=== PATIENT | male | born 1945 | race Caucasian/White ===

== ENCOUNTER 2021-05-06 07:45 | Day surgery (SDC) | payer MEDICARE, OTHER ==
[2021-05-06] MEDS ORDERED: LIDOCAINE HCL 1% 50 MG/5 ML VL PF IJ ONE (07:46)
[2021-05-06] MEDS ORDERED: PROVAYBLUE IV ONE (07:46)
[2021-05-06] MEDS ORDERED: Epinephrine Preservative Free 1 MG/ML IJ ONE (07:46)
[2021-05-06] MEDS ORDERED: Lactated Ringers 1,000 ML IV ONE (07:57)
[2021-05-06] MEDS ORDERED: TETRACAINE 0.5% STERI-UNIT SOL OP ONE ×2 (08:30)
[2021-05-06] MEDS ORDERED: BETADINE 5% OPHTHALMIC 30 ML OP ONE (08:30)
[2021-05-06] MEDS ORDERED: NON-FORMULARY ITEM OP ONE (08:30)
[2021-05-06] MEDS ORDERED: Lactated Ringers 1,000 ML IV SCH (08:30)
[2021-05-06] MEDS ORDERED: Ak-Dilate OPHTHALMIC*** 1.065 ML, Cyclogyl 1% OPHTH SOL 5 ML 1.065 ML, GATIFLOXACIN 0.5... OP ONE ×4 (08:30)
[2021-05-06] MEDS ORDERED: cefUROXime sodium 0.005 GM in Sodium Chloride Flush 30 ML*** 0.5 ML IJ SCH (08:30)
[2021-05-06] MEDS ORDERED: DIPRIVAN 200 MG/20 ML IV ONE ×4 (08:54→09:58)
[2021-05-06] MEDS ORDERED: ROBINUL ONE (08:54)
[2021-05-06] MEDS ORDERED: Zofran 4 MG/2 ML VIAL IV PRN (10:00)
[2021-05-06] MEDS ORDERED: ACETAZOLAMIDE 250 MG TABLET PO ONE (10:00)
[2021-05-06 11:09] VITALS: O2SAT 94
[2021-05-06 11:39] VITALS: BP 168/88; PULSE 92
== END 2021-05-06 11:26 | disposition home or self-care (01) ==
LOC: SDC 07:45
PROVIDERS: ATTEND Ophthalmology
DX: H25.812 Combined forms of age-related cataract, left eye (principal); Z79.899 Other long term (current) drug therapy
CPT/HCPCS: 66982; 99100; C1780; J0171; J2001; J2704; A9270-GY; Q9968

== ENCOUNTER 2021-07-17 12:37 | Day surgery (SDC) | payer MEDICARE, OTHER ==
--- NOTE | 2021-07-16 13:40 | HP ---
DATE OF SURGERY: 07/17/2021 HISTORY OF PRESENT ILLNESS: The patient is a 76-year-old male who presents for colonoscopy. Last colonoscopy was ten years ago and he had some polyps. He also complains of hemorrhoids on the left side. He denies any rectal bleeding. Hemorrhoids are painful at times. The patient did have mild to moderate hemorrhoids on physical exam. PAST MEDICAL HISTORY: Coronary artery disease, hypertension, asthma, hyperlipidemia. PAST SURGICAL HISTORY: Heart stent. Cataract surgery. ALLERGIES: NKDA. MEDICATIONS: Aspirin, albuterol, rosuvastatin, propranolol, Breo Ellipta. FAMILY HISTORY: Stroke. Brain cancer. SOCIAL HISTORY: Negative. REVIEW OF SYSTEMS: CONSTITUTIONAL: Denies fever or chills. CHEST: Denies shortness of breath. CVS: Denies chest pain. ABDOMEN: Denies abdominal pain, nausea, vomiting, diarrhea, constipation or rectal bleeding. PHYSICAL EXAMINATION: GENERAL: No acute distress. CHEST: Nonlabored. No shortness of breath. CVS: Regular rate and rhythm. ABDOMEN: Soft, nontender. IMPRESSION: History of colon polyps and symptomatic hemorrhoids. PLAN: Colonoscopy and hemorrhoidectomy with Dr. Hernan Perez. As dictated by Sandra Mcintosh NP.
[~2021-07-17 12:37] MED LIST: Sensorcaine 0.25% 10 ML ONE
[2021-07-17] MEDS ORDERED: EXPAREL 133 MG/10 ML VIAL IJ ONE (12:38)
[2021-07-17] MEDS ORDERED: Lactated Ringers 1,000 ML IV SCH (13:00)
[2021-07-17] MEDS ORDERED: MEFOXIN 2 GM PREMIX** 2 GM/50 ML ML IV SCH (13:00)
[2021-07-17] MEDS ORDERED: Zofran 4 MG/2 ML VIAL ONE (15:48)
[2021-07-17] MEDS ORDERED: Decadron 4 MG INJ ONE (15:48)
[2021-07-17] MEDS ORDERED: Zemuron 100 MG/10 ML ONE (15:48)
[2021-07-17] MEDS ORDERED: TORAdol 30 mg Injection ONE (15:48)
[2021-07-17] MEDS ORDERED: DIPRIVAN 200 MG/20 ML IV ONE (15:48)
[2021-07-17] MEDS ORDERED: BRIDION 200MG/2ML IV ONE (15:48)
[2021-07-17] MEDS ORDERED: SUBLIMAZE 100 MCG/2 ML ONE ×2 (15:48→16:59)
[2021-07-17] MEDS ORDERED: Xylocaine-Mpf 2% 5 Ml Vial ONE (15:48)
[2021-07-17] MEDS ORDERED: ROBINUL ONE (16:15)
[2021-07-17] MEDS ORDERED: Lactated Ringers 500 ML IV ONE ×2 (17:38→17:50)
[2021-07-17] MEDS ORDERED: TRANDATE 20 MG/4 ML SYRINGE IV ONE (17:40)
[2021-07-17 18:31] VITALS: PULSE 76; O2SAT 96
[2021-07-17 18:33] VITALS: BP 138/92
--- NOTE | 2021-07-18 09:39 | OP ---
SURGERY DATE/TIME: 07/17/2021 1549 PREOPERATIVE DIAGNOSES: 1) Screening. 2) Severe internal and external hemorrhoids. POSTOPERATIVE DIAGNOSES: 1) Findings of severe sigmoid diverticulosis. 2) Complex hemorrhoidectomy with the hemorrhoidal ligature taking five internals and three externals. PROCEDURES: 1) Colonoscopy complete to cecum. 2) Hemorrhoidectomy. SURGEON: Hernan Perez M.D. ANESTHESIA: MAC. COMPLICATIONS: None. CONDITION: Stable. DESCRIPTION OF PROCEDURE: The patient is taken to surgery. Lithotomy. The scope introduced and advanced to the cecum. Circumferential withdrawal satisfactory. There was severe sigmoid diverticulosis. Rectal retractor is placed. There were five internal hemorrhoids which were taken and there were three externals that were taken. Long lasting Marcaine was placed. The patient tolerated the procedure satisfactorily.
== END 2021-07-17 18:35 | disposition home or self-care (01) ==
LOC: SDC 12:37
PROVIDERS: ATTEND Surgery
DX: Z12.11 Encounter for screening for malignant neoplasm of colon (principal); K64.4 Residual hemorrhoidal skin tags; K64.8 Other hemorrhoids; K57.30 Diverticulosis of large intestine without perforation or abscess without bleeding; Z86.010 Personal history of colon polyps; Z79.899 Other long term (current) drug therapy
CPT/HCPCS: 46255; G0105; 99100; J0694; J1100; J1885; J2405; J2704; J3010

== ENCOUNTER 2023-08-28 17:03 | Inpatient (IN) | payer MEDICARE, OTHER ==
[2023-08-28] MEDS ORDERED: Zofran 4 MG/2 ML VIAL ONE (17:32)
[2023-08-28] MEDS ORDERED: Sodium Chloride 0.9% 1000 ML 1,000 ML ONE (17:33)
[2023-08-28] MEDS ORDERED: MORPHINE SULFATE 2 MG INJ ONE (17:33)
[2023-08-28] MEDS: Zofran 4 MG/2 ML VIAL IV ONE (17:36)
[2023-08-28] MEDS: Sodium Chloride 0.9% 1000 ML 1,000 ML IV SCH (17:36)
[2023-08-28 17:37] LABS: Absolute Neutrophil Ct (ANC) 9.24 x10^3/uL (1.4-6.9); BASOPHIL % 0.3 % (0.0-0.4); Basophil (Absolute #) 0.03 x10^3/uL (0-0.4); Eosinophil % 1.2 % (0.00-5.0); Eosinophil (Absolute #) 0.13 x10^3/uL (0-0.5); Hematocrit 40.2 % (42-50); Hemoglobin 13.2 g/dL (12.5-18.0); IMMATURE GRAN # 0.08 x10^3u/L (0.00-0.03); IMMATURE GRAN % 0.7 % (0.00-0.4); Lymphocyte (Absolute #) 0.79 x10^3/uL (1.0-4.6); Lymphocytes % 7.1 % (24.0-44.0); Mean Cell Volume 97.8 fL (78-100); Mean Corpuscular Hemoglobin 32.1 pg (26-32); Mean Corpuscular Hgb Concent. 32.8 g/dL (32-36); Mean Platelet Volume 10.3 fL (7.5-11.0); Monocyte (Absolute #) 0.92 x10^3/uL (0.0-1.3); Monocytes % 8.2 % (0.0-12.0); Neutrophil % 82.5 % (36.0-66.0); Platelet Count 369 x10^3/uL (150-450); Red Blood Count 4.11 x10^6/uL (4.1-5.6); Red Cell Distribution Width 13.2 % (11.5-14.0); White Blood Count 11.2 x10^3/uL (4.0-10.5)
[2023-08-28] MEDS: MORPHINE SULFATE 2 MG INJ IV ONE (17:38)
[2023-08-28 17:50] LABS: ALBUMIN 3.8 g/dL (3.5-5.0); ANION GAP 10.6 MEQ/L (5-15); BILIRUBIN,TOTAL 1.1 mg/dL (0.2-1.3); Calcium 8.8 mg/dL (8.4-10.2); Creatinine 1 1.4 mg/dL (0.66-1.25); EST GLOMERULAR FILTRATION RATE 52.1 ML/MIN; Potassium 4.2 mmol/L (3.5-5.1); Total Protein 7.2 g/dL (6.3-8.2)
--- NOTE | 2023-08-28 18:50 | ERPHSYRPT ---
- History of Present Illness Time Seen by Provider: 08/28/23 17:15 Historian: patient, family Exam Limitations: no limitations Patient Subjective Stated Complaint: C/O right lower abdominal pain that started approx 3 hours ago today. Denies changes in bowel habits or vomiting. Triage Nursing Assessment: Patient brought back to ER in a W/C. He is shaking and SOB. Patient is pale. CRUZ WNL. He is alert and oriented. Patient displaying s/s of pain. Right side of abdomen is tender to palpation. Physician History: 78 years old male with history of hypertension, hyperlipidemia, COPD presented in the ER with chief complaint of right-sided abdominal pain sudden onset almost 3 hours ago, moderate intensity sharp in nature, no aggravating or relieving factors, unable to find any comfortable spot. Patient is also very shaky and reports some shortness of breath at times as well. But no chest pain patient denies any associated nausea vomiting or diarrhea. No constipation but does have pounds weight loss lately. Denies any urinary complaints. No fever or chills reported although patient is shaking. Allergies/Adverse Reactions: No Known Drug Allergies Allergy (Verified 08/28/23 17:05) Home Medications: Propranolol HCl 80 mg PO DAILY 04/29/21 [History] Rosuvastatin Calcium 10 mg PO DAILY 04/29/21 [History] Albuterol Sulfate [Albuterol Sulfate Hfa] 2 puff PO Q4-6HPRN PRN 08/28/23 [History] Cyanocobalamin (Vitamin B-12) [Vitamin B12] 1,000 mcg PO DAILY 08/28/23 [History] Fluticasone/Vilanterol [Breo Ellipta 100-25 Mcg Inhalr] 1 puff PO DAILY 08/28/23 [History] Hx Tetanus, Diphtheria Vaccination/Date Given: Yes Hx Influenza Vaccination/Date Given: Yes Hx Pneumococcal Vaccination/Date Given: Yes Immunizations Up to Date: Yes Travel Risk - International Travel Have you traveled outside of the country in past 3 weeks: No - Coronavirus Screening Are you exhibiting any of the following symptoms?: Yes Symptoms: Shortness of Breath Close contact with a COVID-19 positive Pt in past 14-21 Days: No - Vaccine Status Have you recieved a Covid-19 vaccination: Yes Voltage Inspector: Unknown - Vaccination Dates Dates if Unknown: ? - Review of Systems Constitutional: No Symptoms Eyes: No Symptoms Ears, Nose, & Throat: No Symptoms Respiratory: Cough Cardiac: No Symptoms Abdominal/Gastrointestinal: Abdominal Pain Genitourinary Symptoms: No Symptoms Musculoskeletal: Arthralgias Skin: No Symptoms Neurological: No Symptoms Psychological: No Symptoms Endocrine: No Symptoms Hematologic/Lymphatic: No Symptoms - Past Medical History Pertinent Past Medical History: Yes Neurological History: No Pertinent History ENT History: Cataracts Cardiac History: Angina, High Cholesterol, Hypertension Respiratory History: Asthma, COPD, Other Endocrine Medical History: No Pertinent History Musculoskeletal History: No Pertinent History GI Medical History: Hernia History: No Pertinent History Psycho-Social History: No Pertinent History Male Reproductive Disorders: No Pertinent History Other Medical History: Lung nodules; patient unsure which lung - Past Surgical History Past Surgical History: Yes Neuro Surgical History: No Pertinent History Cardiac: Cardiac Catheterization, Cardiac Stent Respiratory: No Pertinent History Gastrointestinal: No Pertinent History Genitourinary: No Pertinent History Musculoskeletal: No Pertinent History Male Surgical History: No Pertinent History Other Surgical History: Cardiac stent x 1. Rubber Belt Splicer: Dr. Powell - Social History Smoking Status: Former smoker Exposure to second hand smoke: No Drug Use: none Patient Lives Alone: No - Nursing Vital Signs Nursing Vital Signs: Initial Vital Signs Temperature 98.6 F 08/28/23 17:05 Pulse Rate 95 H 08/28/23 17:05 Respiratory Rate 20 08/28/23 17:05 Blood Pressure 167/82 08/28/23 17:05 O2 Sat by Pulse Oximetry 93 L 08/28/23 17:05 Pain Scale Pain Intensity 7 - Physical Exam General Appearance: no apparent distress, alert Eye Exam: PERRL/EOMI Ears, Nose, Throat Exam: normal ENT inspection Neck Exam: normal inspection, supple, full range of motion Respiratory Exam: normal breath sounds, lungs clear Cardiovascular Exam: regular rate/rhythm, normal heart sounds Gastrointestinal/Abdomen Exam: soft, normal bowel sounds, tenderness (Right upper quadrant/flank/lower quadrant with mild guarding but no rebound tenderness) Back Exam: normal inspection, normal range of motion Extremity Exam: normal inspection, normal range of motion Neurologic Exam: alert, oriented x 3, cooperative Skin Exam: normal color SpO2 Interpretation: normal SpO2: 93 O2 Delivery: Room Air Ordered Tests: Active Orders 24 hr Category Date Time Status EKG-ER Only STAT Care 08/28/23 17:09 Active IV Insertion STAT Care 08/28/23 17:09 Active NPO (ED) STAT Care 08/28/23 17:09 Active ABDOMEN AND PELVIS W/0 CONTRAS [CT] Stat Exams 08/28/23 17:09 Taken CHEST WITHOUT CONTRAST [CT] Stat Exams 08/28/23 18:00 Taken CBC W DIFF Stat Lab 08/28/23 17:35 Completed CMP Stat Lab 08/28/23 17:35 Completed LIPASE Stat Lab 08/28/23 17:35 Completed Lactic Acid Stat Lab 08/28/23 17:50 Completed TROPONIN Q4H Lab 08/28/23 17:35 Completed TROPONIN Q4H Lab 08/28/23 21:15 Ordered TROPONIN Q4H Lab 08/29/23 01:15 Ordered UA W/RFX UR CULTURE Stat Lab 08/28/23 17:09 Ordered Medication Summary Generic Name Dose Route Start Last Admin Trade Name Freq PRN Reason Stop Dose Admin Sodium Chloride 1,000 mls @ 100 mls/hr 08/28/23 17:15 08/28/23 17:36 Sodium Chloride 0.9% 1000 Ml IV 09/27/23 17:14 100 mls/hr .Q10H SONY Administration Discontinued Medications Generic Name Dose Route Start Last Admin Trade Name Freq PRN Reason Stop Dose Admin Morphine Sulfate 2 mg 08/28/23 17:09 08/28/23 17:38 Morphine Sulfate 2 Mg/Ml Inj IV 08/28/23 17:10 2 mg STAT ONE Administration Morphine Sulfate Confirm 08/28/23 17:33 Morphine Sulfate 2 Mg/Ml Inj Administered 08/28/23 17:34 Dose 2 mg .ROUTE .STK-MED ONE Ondansetron HCl 4 mg 08/28/23 17:09 08/28/23 17:36 Ondansetron Hcl 4 Mg/2 Ml Vial IV 08/28/23 17:10 4 mg STAT ONE Administration Ondansetron HCl Confirm 08/28/23 17:32 Ondansetron Hcl 4 Mg/2 Ml Vial Administered 08/28/23 17:33 Dose 4 mg .ROUTE .STK-MED ONE Lab/Rad Data: Laboratory Result Diagrams 08/28/23 17:35 08/28/23 17:35 Laboratory Results 08/28/23 08/28/23 08/28/23 Range/Units 17:50 17:35 17:35 WBC (4.0-10.5) x10^3/uL RBC (4.1-5.6) x10^6/uL Hgb (12.5-18.0) g/dL Hct (42-50) % MCV (78-100) fL MCH (26-32) pg MCHC (32-36) g/dL RDW (11.5-14.0) % Plt Count (150-450) x10^3/uL MPV (7.5-11.0) fL Gran % (36.0-66.0) % Immature Gran % (Auto) (0.00-0.4) % Nucleat RBC Rel Count (0.00-0.1) % Eos # (Auto) (0-0.5) x10^3/uL Immature Gran # (Auto) (0.00-0.03) x10^3u/L Absolute Lymphs (auto) (1.0-4.6) x10^3/uL Absolute Monos (auto) (0.0-1.3) x10^3/uL Absolute Nucleated RBC (0.00-0.01) x10^3u/L Lymphocytes % (24.0-44.0) % Monocytes % (0.0-12.0) % Eosinophils % (0.00-5.0) % Basophils % (0.0-0.4) % Absolute Granulocytes (1.4-6.9) x10^3/uL Basophils # (0-0.4) x10^3/uL Sodium 130 L (137-145) mmol/L Potassium 4.2 (3.5-5.1) mmol/L Chloride 97 L (98-107) mmol/L Carbon Dioxide 26 (22-30) mmol/L Anion Gap 10.6 (5-15) MEQ/L BUN 18 (9-20) mg/dL Creatinine 1.40 H (0.66-1.25) mg/dL Estimated GFR 52.1 ML/MIN Glucose 197 H (74-106) mg/dL Lactic Acid 2.4 H (0.4-2.0) Calcium 8.8 (8.4-10.2) mg/dL Total Bilirubin 1.10 (0.2-1.3) mg/dL AST 38 (17-59) U/L ALT 38 (0-50) U/L Alkaline Phosphatase 110 (38-126) U/L Troponin I < 0.012 (0.000-0.034) ng/mL Serum Total Protein 7.2 (6.3-8.2) g/dL Albumin 3.8 (3.5-5.0) g/dL Lipase 87 (23-300) U/L 08/28/23 Range/Units 17:35 WBC 11.2 H (4.0-10.5) x10^3/uL RBC 4.11 (4.1-5.6) x10^6/uL Hgb 13.2 (12.5-18.0) g/dL Hct 40.2 L (42-50) % MCV 97.8 (78-100) fL MCH 32.1 H (26-32) pg MCHC 32.8 (32-36) g/dL RDW 13.2 (11.5-14.0) % Plt Count 369 (150-450) x10^3/uL MPV 10.3 (7.5-11.0) fL Gran % 82.5 H (36.0-66.0) % Immature Gran % (Auto) 0.7 H (0.00-0.4) % Nucleat RBC Rel Count 0.0 (0.00-0.1) % Eos # (Auto) 0.13 (0-0.5) x10^3/uL Immature Gran # (Auto) 0.08 H (0.00-0.03) x10^3u/L Absolute Lymphs (auto) 0.79 L (1.0-4.6) x10^3/uL Absolute Monos (auto) 0.92 (0.0-1.3) x10^3/uL Absolute Nucleated RBC 0.00 (0.00-0.01) x10^3u/L Lymphocytes % 7.1 L (24.0-44.0) % Monocytes % 8.2 (0.0-12.0) % Eosinophils % 1.2 (0.00-5.0) % Basophils % 0.3 (0.0-0.4) % Absolute Granulocytes 9.24 H (1.4-6.9) x10^3/uL Basophils # 0.03 (0-0.4) x10^3/uL Sodium (137-145) mmol/L Potassium (3.5-5.1) mmol/L Chloride (98-107) mmol/L Carbon Dioxide (22-30) mmol/L Anion Gap (5-15) MEQ/L BUN (9-20) mg/dL Creatinine (0.66-1.25) mg/dL Estimated GFR ML/MIN Glucose (74-106) mg/dL Lactic Acid (0.4-2.0) Calcium (8.4-10.2) mg/dL Total Bilirubin (0.2-1.3) mg/dL AST (17-59) U/L ALT (0-50) U/L Alkaline Phosphatase (38-126) U/L Troponin I (0.000-0.034) ng/mL Serum Total Protein (6.3-8.2) g/dL Albumin (3.5-5.0) g/dL Lipase (23-300) U/L - Departure Referrals: YOGESH RECINOS MD [Primary Care Provider] - Follow up/PCP as directed
--- NOTE | 2023-08-28 19:23 | XRAY ---
CLINICAL HISTORY: RT SIDED PAIN TECHNIQUE: Contiguous axial CT images of the chest were acquired without administration of intravenous contrast, Coronal and sagittal reformat images were obtained. COMPARISON: None FINDINGS: A few nodular densities are seen within the posterior segment of the right upper lobe (unchanged). Also, the right lung apex shows fibrotic change with small calcifications, denoting sequela/ previous granulomatous infection (unchanged). A tiny subpleural nonspecific nodule measuring 3 mm within the lateral basal segment of the left lower lobe for follow-up (unchanged). Right infra hilar and peribronchiolar a few calcified lymph nodes are seen, the largest is about 9 mm in diameter, likely representing sequela of previous granulomatous infection (unchanged). A large hiatal hernia is seen (unchanged). Right-sided minimal pleural effusion is seen up to 1.3 cm (new finding). Mild loss of vertebral height of T4 with superior-sided undulation may represent an old osteoporotic compression fracture (unchanged). Heart size is normal, and there is no pericardial effusion. No pathologically enlarged mediastinal, hilar, or axillary lymph node identified. There is no definite mass lesion in the chest wall. The scanned upper abdomen shows calcific foci in the spleen, most likely corresponding to granulomas. IMPRESSION: 1. Again a few nodular densities in the upper lobe of the right lung, most likely representing infectious/ inflammatory etiology (no changes on interval). 2. Right-sided minimal pleural effusion, up to 1.3 cm. This is a new finding. 3. Right apical calcific fibrotic changes, denoting sequela/ previous granulomatous infection (no changes on interval). 4. Right infra hilar and peribronchiolar a few calcified lymph nodes, likely representing sequela of previous granulomatous infection (no changes on interval). 5. A tiny subpleural nonspecific nodule measuring 3 mm within the lateral basal segment of the left lower lobe (no changes on interval). 6. Large hiatal hernia (no changes on interval) 7. Old osteoporotic compression fracture of T4 (no changes on interval). 8. Correlate clinically. Follow-up recommended. Electronically Signed by: Gregory Rivera MD. (08/28/2023 19:19:26 EST)
--- NOTE | 2023-08-28 19:33 | XRAY ---
CLINICAL HISTORY: right side pain TECHNIQUE: A CT scan of the abdomen was performed without IV contrast, Coronal and sagittal reconstructive images were also obtained. COMPARISON: was made CT abdomen dated 08/25/2023 FINDINGS: Lung bases: refer to dedicated CT report. Multiple small colon diverticuli without inflammation findings The liver is normal in size without focal parenchymal abnormality. The portal vein, intrahepatic biliary radicals, and the bile ducts are normal. The gallbladder is normal. No pericholecystic fluid collection or radio dense calculi in the gall bladder. The spleen shows preserved size, with several calcific foci, most likely corresponding to granulomas. The pancreas andadrenal glands are unremarkable. The kidneys are unremarkable. They are normal in size and shape. No calculi or hydronephrosis is seen. The ascending colon, the transverse colon, the descending colon, visualized small bowel loops are unremarkable. There is no evidence of significant enlargement of the mesenteric or retroperitoneal lymph nodes. The osseous structures in the lower rib cage and lumbar spine show no abnormality. Appendix is unremarkable Pelvis: The urinary bladder is unremarkable. The rectosigmoid colon is unremarkable. The prostate is mildly enlarged measuring 6.5x.6 x 5.3 cm, with an estimated weight of 107 g. The pelvic vasculature is unremarkable. No evidence of pelvic lymphadenopathy. No definite bony abnormalities could be depicted. IMPRESSION: 1. Multiple small colon diverticuli without inflammation findings 2. Calcific splenic foci, most likely corresponding to granulomas. 3. Appendix is unremarkable 4. The prostate is enlarged. Further evaluation with PSA and the US is recommended. 5. No major changes on interval. Electronically Signed by: Gregory Rivera MD. (08/28/2023 19:30:04 EST)
[2023-08-28] MEDS ORDERED: SUBLIMAZE 100 MCG/2 ML ONE (19:46)
[2023-08-28] MEDS: SUBLIMAZE 100 MCG/2 ML IV ONE (19:52)
[2023-08-28 20:00] LABS: Appearance Cloudy (Clear); Bacteria None Seen /HPF (None Seen); Bilirubin Negative (Negative); Blood Negative (Negative); Epithelial Cells None Seen /HPF (None Seen); Glucose, Urine 100 mg/dL (Negative); Ketones 15 (Negative); Leukocyte Esterase Negative (Negative); Nitrite Negative (Negative); Ph 5.5 (4.6-8.0); Protein,Urine Dip 100 (Negative); RBC 0-2 /HPF (0-5); Specific Gravity 1.015 (1.005-1.030); WBC 0-2 /HPF (0-5)
[2023-08-28 20:08] LABS: ADD URINE CULTURE? NO (NO)
[2023-08-28] MEDS ORDERED: MORPHINE SULFATE 4 MG INJ ONE (20:47)
[2023-08-28] MEDS: MORPHINE SULFATE 4 MG INJ IV ONE (20:49)
--- NOTE | 2023-08-28 22:38 | PCM.HP ---
History of Present Illness - Chief Complaint Chief Complaint: Right side abdominal pain and Pulmonary Effusion Date: 08/28/23 History of Present Illness: Mr. John is a 78 year old male with a past medical history significant for hypertension, hyperlipidemia and COPD who presents to the hospital with complaints of R sided abd pain that began today and appears to be somewhat reproducible. No fever or chills, no chest pain or shortness of breath. No nausea, vomiting, diarrhea, or constipation. CT scan abd/pelvis negative except some diverticula. CT chest demonstrates a small pleural effusion and large hiatal hernia. WBC slightly elevated at 11.2k. He does report about a 30 lb weight loss since June that has not been worked up yet. Creatinine slightly elevated at 1.40. No NSAIDs or contrast studies. - Review of Systems Constitutional: Lethargy, No Fever, No Chills Eyes: No Vision Changes, No Double Vision Ears, Nose, & Throat: No Symptoms Respiratory: No Cough, No Orthopnea, No Short Of Breath, No Stridor Cardiac: No Chest Pain, No Edema, No Palpitations Abdominal/Gastrointestinal: No Abdominal Pain, No Nausea, No Vomiting, No Diarrhea Genitourinary Symptoms: No Dysuria, No Frequency, No Hematuria Musculoskeletal: Arthralgias Skin: No Cellulitis, No Decubiti, No Rash Neurological: No Dizziness, No Focal Weakness Psychological: No Mood Changes Endocrine: No Polyuria, No Polydipsia Medications & Allergies Home Medications: Home Medication List Propranolol HCl 80 mg PO DAILY 04/29/21 [History Confirmed 08/28/23] Rosuvastatin Calcium 10 mg PO DAILY 04/29/21 [History Confirmed 08/28/23] Albuterol Sulfate [Albuterol Sulfate Hfa] 2 puff PO Q4-6HPRN PRN 08/28/23 [History Confirmed 08/28/23] Aspirin EC 81 mg [Ecotrin 81 mg] 1 tab PO DAILY 08/28/23 [History Confirmed 08/28/23] Cyanocobalamin (Vitamin B-12) [Vitamin B12] 1,000 mcg PO DAILY 08/28/23 [History Confirmed 08/28/23] Fluticasone/Vilanterol [Breo Ellipta 100-25 Mcg Inhalr] 1 puff PO DAILY 08/28/23 [History Confirmed 08/28/23] Allergies/Adverse Reactions: Allergies Allergy/AdvReac Type Severity Reaction Status Date / Time No Known Drug Allergies Allergy Verified 08/28/23 21:35 - Past Medical History Past Medical History: Yes Neurological History: No Pertinent History ENT History: Cataracts Cardiac History: Angina, High Cholesterol, Hypertension Respiratory History: Asthma, COPD, Other Endocrine Medical History: No Pertinent History Musculoskelatal History: No Pertinent History GI Medical History: Hernia History: No Pertinent History Pyscho-Social History: No Pertinent History Male Reproductive Disorders: No Pertinent History Comment: Lung nodules; patient unsure which lung - Past Surgical History Past Surgical History: Yes Neuro Surgical History: No Pertinent History Cardiac History: Cardiac Catheterization, Cardiac Stent Respiratory Surgery: No Pertinent History GI Surgical History: No Pertinent History Genitourinary Surgical Hx: No Pertinent History Musculskeletal Surgical Hx: No Pertinent History Male Surgical History: No Pertinent History Other Surgical History: Cardiac stent x 1. [employer] Officer: Dr. Powell - Social History Smoking Status: Former smoker Exposure to second hand smoke: No Alcohol: None Drug Use: none - Physical Exam Vital Signs: Vital Signs - 24 hr Temp Pulse Resp BP BP Pulse Ox 08/28/23 21:33 93 L 08/28/23 21:14 100.8 F 93 H 24 113/56 94 L 08/28/23 20:56 93 H 34 H 109/65 96 08/28/23 20:30 94 H 38 H 129/66 96 08/28/23 20:00 85 25 H 103/51 96 08/28/23 19:30 87 26 H 115/63 96 08/28/23 19:00 87 26 H 100/50 90 L 08/28/23 18:52 93 L 08/28/23 18:13 93 H 32 H 93 L 08/28/23 17:30 154/90 08/28/23 17:11 93 H 31 H 167/82 93 L 08/28/23 17:05 98.6 F 95 H 20 167/82 93 L General Appearance: no apparent distress Neurologic Exam: alert, oriented x 3 Ears, Nose, Throat Exam: moist mucous membranes Respiratory Exam: No respiratory distress Cardiovascular Exam: regular rate/rhythm Gastrointestinal/Abdomen Exam: soft Back Exam: normal inspection Extremity Exam: No inflammation, No swelling Skin Exam: normal color Results - Labs Lab/Micro Results: Lab Results-Last 24 Hours 02/05/1108/28/23 08/28/23 Range/Units 17:35 17:35 17:35 WBC 11.2 H (4.0-10.5) x10^3/uL RBC 4.11 (4.1-5.6) x10^6/uL Hgb 13.2 (12.5-18.0) g/dL Hct 40.2 L (42-50) % MCV 97.8 (78-100) fL MCH 32.1 H (26-32) pg MCHC 32.8 (32-36) g/dL RDW 13.2 (11.5-14.0) % Plt Count 369 (150-450) x10^3/uL MPV 10.3 (7.5-11.0) fL Gran % 82.5 H (36.0-66.0) % Immature Gran % (Auto) 0.7 H (0.00-0.4) % Nucleat RBC Rel Count 0.0 (0.00-0.1) % Eos # (Auto) 0.13 (0-0.5) x10^3/uL Immature Gran # (Auto) 0.08 H (0.00-0.03) x10^3u/L Absolute Lymphs (auto) 0.79 L (1.0-4.6) x10^3/uL Absolute Monos (auto) 0.92 (0.0-1.3) x10^3/uL Absolute Nucleated RBC 0.00 (0.00-0.01) x10^3u/L Lymphocytes % 7.1 L (24.0-44.0) % Monocytes % 8.2 (0.0-12.0) % Eosinophils % 1.2 (0.00-5.0) % Basophils % 0.3 (0.0-0.4) % Absolute Granulocytes 9.24 H (1.4-6.9) x10^3/uL Basophils # 0.03 (0-0.4) x10^3/uL Sodium 130 L (137-145) mmol/L Potassium 4.2 (3.5-5.1) mmol/L Chloride 97 L (98-107) mmol/L Carbon Dioxide 26 (22-30) mmol/L Anion Gap 10.6 (5-15) MEQ/L BUN 18 (9-20) mg/dL Creatinine 1.40 H (0.66-1.25) mg/dL Estimated GFR 52.1 ML/MIN Glucose 197 H (74-106) mg/dL Lactic Acid (0.4-2.0) Calcium 8.8 (8.4-10.2) mg/dL Total Bilirubin 1.10 (0.2-1.3) mg/dL AST 38 (17-59) U/L ALT 38 (0-50) U/L Alkaline Phosphatase 110 (38-126) U/L Troponin I < 0.012 (0.000-0.034) ng/mL Serum Total Protein 7.2 (6.3-8.2) g/dL Albumin 3.8 (3.5-5.0) g/dL Lipase 87 (23-300) U/L Urine Color (Yellow) Urine Appearance (Clear) Urine pH (4.6-8.0) Ur Specific [place] (1.005-1.030) Urine Protein (Negative) Urine Glucose (UA) (Negative) mg/dL Urine Ketones (Negative) Urine Blood (Negative) Urine Nitrite (Negative) Urine Bilirubin (Negative) Urine Urobilinogen (0.2) mg/dL Ur Leukocyte Esterase (Negative) U Hyaline Cast (Auto) (0-2) /LPF Urine Microscopic RBC (0-5) /HPF Urine Microscopic WBC (0-5) /HPF Ur Epithelial Cells (None Seen) /HPF Urine Bacteria (None Seen) /HPF Urine Culture Reflexed (NO) 08/28/23 08/28/23 08/28/23 Range/Units 17:50 19:44 19:54 WBC (4.0-10.5) x10^3/uL RBC (4.1-5.6) x10^6/uL Hgb (12.5-18.0) g/dL Hct (42-50) % MCV (78-100) fL MCH (26-32) pg MCHC (32-36) g/dL RDW (11.5-14.0) % Plt Count (150-450) x10^3/uL MPV (7.5-11.0) fL Gran % (36.0-66.0) % Immature Gran % (Auto) (0.00-0.4) % Nucleat RBC Rel Count (0.00-0.1) % Eos # (Auto) (0-0.5) x10^3/uL Immature Gran # (Auto) (0.00-0.03) x10^3u/L Absolute Lymphs (auto) (1.0-4.6) x10^3/uL Absolute Monos (auto) (0.0-1.3) x10^3/uL Absolute Nucleated RBC (0.00-0.01) x10^3u/L Lymphocytes % (24.0-44.0) % Monocytes % (0.0-12.0) % Eosinophils % (0.00-5.0) % Basophils % (0.0-0.4) % Absolute Granulocytes (1.4-6.9) x10^3/uL Basophils # (0-0.4) x10^3/uL Sodium (137-145) mmol/L Potassium (3.5-5.1) mmol/L Chloride (98-107) mmol/L Carbon Dioxide (22-30) mmol/L Anion Gap (5-15) MEQ/L BUN (9-20) mg/dL Creatinine (0.66-1.25) mg/dL Estimated GFR ML/MIN Glucose (74-106) mg/dL Lactic Acid 2.4 H 1.5 (0.4-2.0) Calcium (8.4-10.2) mg/dL Total Bilirubin (0.2-1.3) mg/dL AST (17-59) U/L ALT (0-50) U/L Alkaline Phosphatase (38-126) U/L Troponin I (0.000-0.034) ng/mL Serum Total Protein (6.3-8.2) g/dL Albumin (3.5-5.0) g/dL Lipase (23-300) U/L Urine Color Yellow (Yellow) Urine Appearance Cloudy A (Clear) Urine pH 5.5 (4.6-8.0) Ur Specific [place] 1.015 (1.005-1.030) Urine Protein 100 A (Negative) Urine Glucose (UA) 100 A (Negative) mg/dL Urine Ketones 15 A (Negative) Urine Blood Negative (Negative) Urine Nitrite Negative (Negative) Urine Bilirubin Negative (Negative) Urine Urobilinogen 1.0 A (0.2) mg/dL Ur Leukocyte Esterase Negative (Negative) U Hyaline Cast (Auto) 6-10 A (0-2) /LPF Urine Microscopic RBC 0-2 (0-5) /HPF Urine Microscopic WBC 0-2 (0-5) /HPF Ur Epithelial Cells None Seen (None Seen) /HPF Urine Bacteria None Seen (None Seen) /HPF Urine Culture Reflexed NO (NO) 08/28/23 Range/Units 21:20 WBC (4.0-10.5) x10^3/uL RBC (4.1-5.6) x10^6/uL Hgb (12.5-18.0) g/dL Hct (42-50) % MCV (78-100) fL MCH (26-32) pg MCHC (32-36) g/dL RDW (11.5-14.0) % Plt Count (150-450) x10^3/uL MPV (7.5-11.0) fL Gran % (36.0-66.0) % Immature Gran % (Auto) (0.00-0.4) % Nucleat RBC Rel Count (0.00-0.1) % Eos # (Auto) (0-0.5) x10^3/uL Immature Gran # (Auto) (0.00-0.03) x10^3u/L Absolute Lymphs (auto) (1.0-4.6) x10^3/uL Absolute Monos (auto) (0.0-1.3) x10^3/uL Absolute Nucleated RBC (0.00-0.01) x10^3u/L Lymphocytes % (24.0-44.0) % Monocytes % (0.0-12.0) % Eosinophils % (0.00-5.0) % Basophils % (0.0-0.4) % Absolute Granulocytes (1.4-6.9) x10^3/uL Basophils # (0-0.4) x10^3/uL Sodium (137-145) mmol/L Potassium (3.5-5.1) mmol/L Chloride (98-107) mmol/L Carbon Dioxide (22-30) mmol/L Anion Gap (5-15) MEQ/L BUN (9-20) mg/dL Creatinine (0.66-1.25) mg/dL Estimated GFR ML/MIN Glucose (74-106) mg/dL Lactic Acid (0.4-2.0) Calcium (8.4-10.2) mg/dL Total Bilirubin (0.2-1.3) mg/dL AST (17-59) U/L ALT (0-50) U/L Alkaline Phosphatase (38-126) U/L Troponin I < 0.012 (0.000-0.034) ng/mL Serum Total Protein (6.3-8.2) g/dL Albumin (3.5-5.0) g/dL Lipase (23-300) U/L Urine Color (Yellow) Urine Appearance (Clear) Urine pH (4.6-8.0) Ur Specific [place] (1.005-1.030) Urine Protein (Negative) Urine Glucose (UA) (Negative) mg/dL Urine Ketones (Negative) Urine Blood (Negative) Urine Nitrite (Negative) Urine Bilirubin (Negative) Urine Urobilinogen (0.2) mg/dL Ur Leukocyte Esterase (Negative) U Hyaline Cast (Auto) (0-2) /LPF Urine Microscopic RBC (0-5) /HPF Urine Microscopic WBC (0-5) /HPF Ur Epithelial Cells (None Seen) /HPF Urine Bacteria (None Seen) /HPF Urine Culture Reflexed (NO) - Radiology Impressions Radiology Exams & Impressions: Radiology Procedures Category Date Time Status ABDOMEN AND PELVIS W/0 CONTRAS [CT] Stat Exams 08/28/23 17:09 Completed CHEST WITHOUT CONTRAST [CT] Stat Exams 08/28/23 18:00 Completed - Other Procedures and Tests Respiratory Therapy 08/28/23 21:07 Respiratory Therapy Consult ONCE 08/28/23 21:33 Oxygen Nasal Cannula 2 lpm 08/28/23 22:32 Respiratory Therapy Assessment DAILY Assessment/Plan (1) Abdominal pain Current Visit: Yes Status: Acute Assessment & Plan: Etiology unclear as CT scans negative for cholecystitis or colon issue - ? costochondritis 1. Pain control with Dilaudid 2. Trend LFTs 3. Muscle relaxers Code(s): R10.9 - UNSPECIFIED ABDOMINAL PAIN (2) Acute kidney injury Current Visit: Yes Status: Acute Assessment & Plan: Creatinine 1.4 may be secondary to SANDEEP from cardiorenal syndrome versus hypertensive disease 1. Encourage PO intake, will defer IVFs 2. Continue bp meds 3. Diuretics prn 4. Follow I/Os 5. Watch electrolytes, creatinine closely Code(s): N17.9 - ACUTE KIDNEY FAILURE, UNSPECIFIED (3) Hyponatremia with excess extracellular fluid volume Current Visit: Yes Status: Acute Assessment & Plan: Sodium 130 c/w hypervolemic state given pleural effusions 1. Limit free water 2. Diuretics prn 3. Monitor electrolytes closely - no need for hypertonic saline or tolvaptan Code(s): E87.1 - HYPO-OSMOLALITY AND HYPONATREMIA (4) Pleural effusion Current Visit: Yes Status: Acute Assessment & Plan: Etiology unclear, may be related to malignancy given significant weight loss versus parapneumonic collection given elevated WBC versus cardiorenal 1. Will start empiric antibiotics 2. Limit free water 3. Diuretics prn 4. Will need malignancy work up Code(s): J90 - PLEURAL EFFUSION, NOT ELSEWHERE CLASSIFIED (5) Hypertensive chronic kidney disease with stage 1 through stage 4 chronic kidney disease, or unspecified chronic kidney disease Current Visit: Yes Status: Acute Assessment & Plan: Blood pressure under reasonable control, target 130/80 with CKD Code(s): I12.9 - HYPERTENSIVE CHRONIC KIDNEY DISEASE W STG 1-4/UNSP CHR KDNY Telemedicine Encounter - Telemedicine Encounter Telemedicine Encounter: The entirety of this encounter was performed via Telemedicine"
[2023-08-28] MEDS ORDERED: Docusate Sodium 100 MG PO PRN (22:46)
[2023-08-28] MEDS: VENTOLIN COMMON CANISTER IH PRN (23:04)
[2023-08-28] MEDS: Robaxin PO PRN (23:15)
[2023-08-29] MEDS: Hydromorphone 1 mg/ml Injection IV PRN (00:59)
[2023-08-29 01:48] LABS: Absolute Neutrophil Ct (ANC) 15.41 x10^3/uL (1.4-6.9); BASOPHIL % 0.2 % (0.0-0.4); Basophil (Absolute #) 0.03 x10^3/uL (0-0.4); Eosinophil % 0.1 % (0.00-5.0); Eosinophil (Absolute #) 0.01 x10^3/uL (0-0.5); Hematocrit 36.7 % (42-50); IMMATURE GRAN # 0.11 x10^3u/L (0.00-0.03); IMMATURE GRAN % 0.6 % (0.00-0.4); Lymphocyte (Absolute #) 0.92 x10^3/uL (1.0-4.6); Lymphocytes % 5.1 % (24.0-44.0); Mean Cell Volume 98.7 fL (78-100); Mean Corpuscular Hemoglobin 32.3 pg (26-32); Mean Corpuscular Hgb Concent. 32.7 g/dL (32-36); Mean Platelet Volume 10.1 fL (7.5-11.0); Monocyte (Absolute #) 1.54 x10^3/uL (0.0-1.3); Monocytes % 8.5 % (0.0-12.0); Neutrophil % 85.5 % (36.0-66.0); Platelet Count 291 x10^3/uL (150-450); Red Blood Count 3.72 x10^6/uL (4.1-5.6); Red Cell Distribution Width 13.3 % (11.5-14.0)
[2023-08-29 02:18] LABS: ALBUMIN 3.1 g/dL (3.5-5.0); ANION GAP 10.8 MEQ/L (5-15); BILIRUBIN,TOTAL 1.1 mg/dL (0.2-1.3); Calcium 8.4 mg/dL (8.4-10.2); Creatinine 1 1.44 mg/dL (0.66-1.25); EST GLOMERULAR FILTRATION RATE 50.4 ML/MIN
[2023-08-29 03:22] LABS: Slide Review 1 YES
--- NOTE | 2023-08-29 05:15 | PCM.NOTE ---
Date and Time: 08/29/23 9147 Subjective Assessment: Mr. John is a 78 year old male with a past medical history significant for hypertension, hyperlipidemia, diabetes mellitus, and COPD who presented to ED 08/28/23 with complaints of right sided pain in his abdomen starting approximately three hours prior to arrival. He describes the pain as under his right rib with no radiation, aggravated after eating and deep breathing. Patient reports that starting in June he was placed on metformin by his pcp and had GI upset and weight loss so he stopped taking it about three weeks later. He does report a poor appetite with approximately a 27 pound weight loss since June. His PCP has evaluated the weight loss with recent OP imaging noting a hiatal hernia as well as pulmonary nodules. He has appointments scheduled with [facility] Perez in September for EGD and Dr. Tavares for follow up on the pulmonary nodules this coming Wednesday. Imaging repeat with CT abdomen and pelvis showing diverticuli and enlarged prostate. CT chest showing right small pleural effusion and fibroitc changes, a few nodular densities the the RUL. Patient admitted with abdominal pain, SANDEEP, hyponatremia, and pleural effusion. 08/29/23: Met with patient, spouse, and daughter bedside. Patient states pain has improved, although he was eating breakfast during interview and reported that the pain was coming back. Discussed lab finding with an increase to his WBC. Patient denies fever,cough, sob, cp, MCCORD, dizziness, N/V/D. No recent sick contacts. <GAVIN ROD - Last Filed: 08/29/23 10:51> Date and Time: 08/29/23 1654 <DEVORA CABRERA - Last Filed: 08/29/23 16:56> - Review of Systems Constitutional: No Symptoms Eyes: No Symptoms Ears, Nose, & Throat: No Symptoms Respiratory: No Symptoms Cardiac: No Symptoms Abdominal/Gastrointestinal: Abdominal Pain, Appetite Changes Genitourinary Symptoms: No Symptoms Musculoskeletal: No Symptoms Skin: No Symptoms Neurological: No Symptoms Psychological: No Symptoms Endocrine: No Symptoms Hematologic/Lymphatic: No Symptoms Immunological/Allergic: No Symptoms <GAVIN ROD - Last Filed: 08/29/23 10:51> Objective Exam General Appearance: no apparent distress Neurologic Exam: alert, oriented x 3, cooperative Skin Exam: normal color Eye Exam: PERRL Ears, Nose, Throat Exam: normal ENT inspection Neck Exam: normal inspection Respiratory Exam: normal breath sounds, lungs clear Cardiovascular Exam: regular rate/rhythm, normal heart sounds Gastrointestinal/Abdomen Exam: soft, normal bowel sounds, tenderness Extremity Exam: normal inspection Back Exam: normal inspection Male Genitalia Exam: deferred Rectal Exam: deferred <GAVIN ROD - Last Filed: 08/29/23 10:51> OBJECTIVE DATA Vital Signs: Vital Signs - 24 hr Temp Pulse Resp BP BP Pulse Ox 08/28/23 23:35 99.7 F 83 20 102/55 95 08/28/23 22:32 86 22 95 08/28/23 21:33 93 L 08/28/23 21:14 100.8 F 93 H 24 113/56 94 L 08/28/23 20:56 93 H 34 H 109/65 96 08/28/23 20:30 94 H 38 H 129/66 96 08/28/23 20:00 85 25 H 103/51 96 08/28/23 19:30 87 26 H 115/63 96 08/28/23 19:00 87 26 H 100/50 90 L 08/28/23 18:52 93 L 08/28/23 18:13 93 H 32 H 93 L 08/28/23 17:30 154/90 08/28/23 17:11 93 H 31 H 167/82 93 L 08/28/23 17:05 98.6 F 95 H 20 167/82 93 L Pain Assessment - Last Documented Pain Intensity 6 Pain Scale Used 0-10 Pain Scale Intake and Output: Intake & Output 08/26/23 08/27/23 08/28/23 08/29/23 11:59 11:59 11:59 11:59 Intake Total 200 Output Total 100 Balance 100 Weight 67.4 kg Lab Results: Lab Results-Last 24 Hours 08/28/23 08/28/23 08/28/23 Range/Units 17:35 17:35 17:35 WBC 11.2 H (4.0-10.5) x10^3/uL RBC 4.11 (4.1-5.6) x10^6/uL Hgb 13.2 (12.5-18.0) g/dL Hct 40.2 L (42-50) % MCV 97.8 (78-100) fL MCH 32.1 H (26-32) pg MCHC 32.8 (32-36) g/dL RDW 13.2 (11.5-14.0) % Plt Count 369 (150-450) x10^3/uL MPV 10.3 (7.5-11.0) fL Gran % 82.5 H (36.0-66.0) % Immature Gran % (Auto) 0.7 H (0.00-0.4) % Nucleat RBC Rel Count 0.0 (0.00-0.1) % Eos # (Auto) 0.13 (0-0.5) x10^3/uL Immature Gran # (Auto) 0.08 H (0.00-0.03) x10^3u/L Absolute Lymphs (auto) 0.79 L (1.0-4.6) x10^3/uL Absolute Monos (auto) 0.92 (0.0-1.3) x10^3/uL Absolute Nucleated RBC 0.00 (0.00-0.01) x10^3u/L Lymphocytes % 7.1 L (24.0-44.0) % Monocytes % 8.2 (0.0-12.0) % Eosinophils % 1.2 (0.00-5.0) % Basophils % 0.3 (0.0-0.4) % Absolute Granulocytes 9.24 H (1.4-6.9) x10^3/uL Basophils # 0.03 (0-0.4) x10^3/uL Sodium 130 L (137-145) mmol/L Potassium 4.2 (3.5-5.1) mmol/L Chloride 97 L (98-107) mmol/L Carbon Dioxide 26 (22-30) mmol/L Anion Gap 10.6 (5-15) MEQ/L BUN 18 (9-20) mg/dL Creatinine 1.40 H (0.66-1.25) mg/dL Estimated GFR 52.1 ML/MIN Glucose 197 H (74-106) mg/dL Lactic Acid (0.4-2.0) Calcium 8.8 (8.4-10.2) mg/dL Total Bilirubin 1.10 (0.2-1.3) mg/dL AST 38 (17-59) U/L ALT 38 (0-50) U/L Alkaline Phosphatase 110 (38-126) U/L Troponin I < 0.012 (0.000-0.034) ng/mL NT-Pro-B Natriuret Pep (<300) pg/mL Serum Total Protein 7.2 (6.3-8.2) g/dL Albumin 3.8 (3.5-5.0) g/dL Lipase 87 (23-300) U/L Urine Color (Yellow) Urine Appearance (Clear) Urine pH (4.6-8.0) Ur Specific [place] (1.005-1.030) Urine Protein (Negative) Urine Glucose (UA) (Negative) mg/dL Urine Ketones (Negative) Urine Blood (Negative) Urine Nitrite (Negative) Urine Bilirubin (Negative) Urine Urobilinogen (0.2) mg/dL Ur Leukocyte Esterase (Negative) U Hyaline Cast (Auto) (0-2) /LPF Urine Microscopic RBC (0-5) /HPF Urine Microscopic WBC (0-5) /HPF Ur Epithelial Cells (None Seen) /HPF Urine Bacteria (None Seen) /HPF Urine Culture Reflexed (NO) Slides for Path Review 08/28/23 08/28/23 08/28/23 Range/Units 17:50 19:44 19:54 WBC (4.0-10.5) x10^3/uL RBC (4.1-5.6) x10^6/uL Hgb (12.5-18.0) g/dL Hct (42-50) % MCV (78-100) fL MCH (26-32) pg MCHC (32-36) g/dL RDW (11.5-14.0) % Plt Count (150-450) x10^3/uL MPV (7.5-11.0) fL Gran % (36.0-66.0) % Immature Gran % (Auto) (0.00-0.4) % Nucleat RBC Rel Count (0.00-0.1) % Eos # (Auto) (0-0.5) x10^3/uL Immature Gran # (Auto) (0.00-0.03) x10^3u/L Absolute Lymphs (auto) (1.0-4.6) x10^3/uL Absolute Monos (auto) (0.0-1.3) x10^3/uL Absolute Nucleated RBC (0.00-0.01) x10^3u/L Lymphocytes % (24.0-44.0) % Monocytes % (0.0-12.0) % Eosinophils % (0.00-5.0) % Basophils % (0.0-0.4) % Absolute Granulocytes (1.4-6.9) x10^3/uL Basophils # (0-0.4) x10^3/uL Sodium (137-145) mmol/L Potassium (3.5-5.1) mmol/L Chloride (98-107) mmol/L Carbon Dioxide (22-30) mmol/L Anion Gap (5-15) MEQ/L BUN (9-20) mg/dL Creatinine (0.66-1.25) mg/dL Estimated GFR ML/MIN Glucose (74-106) mg/dL Lactic Acid 2.4 H 1.5 (0.4-2.0) Calcium (8.4-10.2) mg/dL Total Bilirubin (0.2-1.3) mg/dL AST (17-59) U/L ALT (0-50) U/L Alkaline Phosphatase (38-126) U/L Troponin I (0.000-0.034) ng/mL NT-Pro-B Natriuret Pep (<300) pg/mL Serum Total Protein (6.3-8.2) g/dL Albumin (3.5-5.0) g/dL Lipase (23-300) U/L Urine Color Yellow (Yellow) Urine Appearance Cloudy A (Clear) Urine pH 5.5 (4.6-8.0) Ur Specific [place] 1.015 (1.005-1.030) Urine Protein 100 A (Negative) Urine Glucose (UA) 100 A (Negative) mg/dL Urine Ketones 15 A (Negative) Urine Blood Negative (Negative) Urine Nitrite Negative (Negative) Urine Bilirubin Negative (Negative) Urine Urobilinogen 1.0 A (0.2) mg/dL Ur Leukocyte Esterase Negative (Negative) U Hyaline Cast (Auto) 6-10 A (0-2) /LPF Urine Microscopic RBC 0-2 (0-5) /HPF Urine Microscopic WBC 0-2 (0-5) /HPF Ur Epithelial Cells None Seen (None Seen) /HPF Urine Bacteria None Seen (None Seen) /HPF Urine Culture Reflexed NO (NO) Slides for Path Review 08/28/23 08/29/23 08/29/23 Range/Units 21:20 01:46 01:46 WBC 18.0 H (4.0-10.5) x10^3/uL RBC 3.72 L (4.1-5.6) x10^6/uL Hgb 12.0 L (12.5-18.0) g/dL Hct 36.7 L (42-50) % MCV 98.7 (78-100) fL MCH 32.3 H (26-32) pg MCHC 32.7 (32-36) g/dL RDW 13.3 (11.5-14.0) % Plt Count 291 (150-450) x10^3/uL MPV 10.1 (7.5-11.0) fL Gran % 85.5 H (36.0-66.0) % Immature Gran % (Auto) 0.6 H (0.00-0.4) % Nucleat RBC Rel Count 0.0 (0.00-0.1) % Eos # (Auto) 0.01 (0-0.5) x10^3/uL Immature Gran # (Auto) 0.11 H (0.00-0.03) x10^3u/L Absolute Lymphs (auto) 0.92 L (1.0-4.6) x10^3/uL Absolute Monos (auto) 1.54 H (0.0-1.3) x10^3/uL Absolute Nucleated RBC 0.00 (0.00-0.01) x10^3u/L Lymphocytes % 5.1 L (24.0-44.0) % Monocytes % 8.5 (0.0-12.0) % Eosinophils % 0.1 (0.00-5.0) % Basophils % 0.2 (0.0-0.4) % Absolute Granulocytes 15.41 H (1.4-6.9) x10^3/uL Basophils # 0.03 (0-0.4) x10^3/uL Sodium (137-145) mmol/L Potassium (3.5-5.1) mmol/L Chloride (98-107) mmol/L Carbon Dioxide (22-30) mmol/L Anion Gap (5-15) MEQ/L BUN (9-20) mg/dL Creatinine (0.66-1.25) mg/dL Estimated GFR ML/MIN Glucose (74-106) mg/dL Lactic Acid (0.4-2.0) Calcium (8.4-10.2) mg/dL Total Bilirubin (0.2-1.3) mg/dL AST (17-59) U/L ALT (0-50) U/L Alkaline Phosphatase (38-126) U/L Troponin I < 0.012 0.015 (0.000-0.034) ng/mL NT-Pro-B Natriuret Pep (<300) pg/mL Serum Total Protein (6.3-8.2) g/dL Albumin (3.5-5.0) g/dL Lipase (23-300) U/L Urine Color (Yellow) Urine Appearance (Clear) Urine pH (4.6-8.0) Ur Specific [place] (1.005-1.030) Urine Protein (Negative) Urine Glucose (UA) (Negative) mg/dL Urine Ketones (Negative) Urine Blood (Negative) Urine Nitrite (Negative) Urine Bilirubin (Negative) Urine Urobilinogen (0.2) mg/dL Ur Leukocyte Esterase (Negative) U Hyaline Cast (Auto) (0-2) /LPF Urine Microscopic RBC (0-5) /HPF Urine Microscopic WBC (0-5) /HPF Ur Epithelial Cells (None Seen) /HPF Urine Bacteria (None Seen) /HPF Urine Culture Reflexed (NO) Slides for Path Review YES 08/29/23 Range/Units 01:46 WBC (4.0-10.5) x10^3/uL RBC (4.1-5.6) x10^6/uL Hgb (12.5-18.0) g/dL Hct (42-50) % MCV (78-100) fL MCH (26-32) pg MCHC (32-36) g/dL RDW (11.5-14.0) % Plt Count (150-450) x10^3/uL MPV (7.5-11.0) fL Gran % (36.0-66.0) % Immature Gran % (Auto) (0.00-0.4) % Nucleat RBC Rel Count (0.00-0.1) % Eos # (Auto) (0-0.5) x10^3/uL Immature Gran # (Auto) (0.00-0.03) x10^3u/L Absolute Lymphs (auto) (1.0-4.6) x10^3/uL Absolute Monos (auto) (0.0-1.3) x10^3/uL Absolute Nucleated RBC (0.00-0.01) x10^3u/L Lymphocytes % (24.0-44.0) % Monocytes % (0.0-12.0) % Eosinophils % (0.00-5.0) % Basophils % (0.0-0.4) % Absolute Granulocytes (1.4-6.9) x10^3/uL Basophils # (0-0.4) x10^3/uL Sodium 129 L (137-145) mmol/L Potassium 4.0 (3.5-5.1) mmol/L Chloride 98 (98-107) mmol/L Carbon Dioxide 24 (22-30) mmol/L Anion Gap 10.8 (5-15) MEQ/L BUN 19 (9-20) mg/dL Creatinine 1.44 H (0.66-1.25) mg/dL Estimated GFR 50.4 ML/MIN Glucose 169 H (74-106) mg/dL Lactic Acid (0.4-2.0) Calcium 8.4 (8.4-10.2) mg/dL Total Bilirubin 1.10 (0.2-1.3) mg/dL AST 27 (17-59) U/L ALT 30 (0-50) U/L Alkaline Phosphatase 81 (38-126) U/L Troponin I (0.000-0.034) ng/mL NT-Pro-B Natriuret Pep 1020 (<300) pg/mL Serum Total Protein 6.0 L (6.3-8.2) g/dL Albumin 3.1 L (3.5-5.0) g/dL Lipase (23-300) U/L Urine Color (Yellow) Urine Appearance (Clear) Urine pH (4.6-8.0) Ur Specific [place] (1.005-1.030) Urine Protein (Negative) Urine Glucose (UA) (Negative) mg/dL Urine Ketones (Negative) Urine Blood (Negative) Urine Nitrite (Negative) Urine Bilirubin (Negative) Urine Urobilinogen (0.2) mg/dL Ur Leukocyte Esterase (Negative) U Hyaline Cast (Auto) (0-2) /LPF Urine Microscopic RBC (0-5) /HPF Urine Microscopic WBC (0-5) /HPF Ur Epithelial Cells (None Seen) /HPF Urine Bacteria (None Seen) /HPF Urine Culture Reflexed (NO) Slides for Path Review Radiology Exams: Radiology Procedures Category Date Time Status ABDOMEN AND PELVIS W/0 CONTRAS [CT] Stat Exams 08/28/23 17:09 Completed CHEST WITHOUT CONTRAST [CT] Stat Exams 08/28/23 18:00 Completed <GAVIN ROD - Last Filed: 08/29/23 10:51> Vital Signs: Vital Signs - 24 hr Temp Pulse Resp BP BP Pulse Ox 08/29/23 16:00 98.2 F 98 H 18 111/55 97 08/29/23 14:46 100 H 18 96 08/29/23 12:00 98.1 F 84 16 90/51 91 L 08/29/23 09:05 88 16 91 L 08/29/23 08:04 97.7 F 86 18 102/86 91 L 08/29/23 07:40 87 91 L 08/29/23 05:17 100.7 F 95 H 25 H 115/53 94 L 08/28/23 23:35 99.7 F 83 20 102/55 95 08/28/23 22:32 86 22 95 08/28/23 21:33 93 L 08/28/23 21:14 100.8 F 93 H 24 113/56 94 L 08/28/23 20:56 93 H 34 H 109/65 96 08/28/23 20:30 94 H 38 H 129/66 96 08/28/23 20:00 85 25 H 103/51 96 08/28/23 19:30 87 26 H 115/63 96 08/28/23 19:00 87 26 H 100/50 90 L 08/28/23 18:52 93 L 08/28/23 18:13 93 H 32 H 93 L 08/28/23 17:30 154/90 08/28/23 17:11 93 H 31 H 167/82 93 L 08/28/23 17:05 98.6 F 95 H 20 167/82 93 L Pain Assessment - Last Documented Pain Intensity 7 Pain Scale Used [facility] Intake and Output: Intake & Output 08/27/23 08/28/23 08/29/23 08/30/23 11:59 11:59 11:59 11:59 Intake Total 320 120 Output Total 100 200 Balance 220 -80 Weight 67.4 kg Lab Results: Lab Results-Last 24 Hours 08/28/23 08/28/23 08/28/23 Range/Units 17:35 17:35 17:35 WBC 11.2 H (4.0-10.5) x10^3/uL RBC 4.11 (4.1-5.6) x10^6/uL Hgb 13.2 (12.5-18.0) g/dL Hct 40.2 L (42-50) % MCV 97.8 (78-100) fL MCH 32.1 H (26-32) pg MCHC 32.8 (32-36) g/dL RDW 13.2 (11.5-14.0) % Plt Count 369 (150-450) x10^3/uL MPV 10.3 (7.5-11.0) fL Gran % 82.5 H (36.0-66.0) % Immature Gran % (Auto) 0.7 H (0.00-0.4) % Nucleat RBC Rel Count 0.0 (0.00-0.1) % Eos # (Auto) 0.13 (0-0.5) x10^3/uL Immature Gran # (Auto) 0.08 H (0.00-0.03) x10^3u/L Absolute Lymphs (auto) 0.79 L (1.0-4.6) x10^3/uL Absolute Monos (auto) 0.92 (0.0-1.3) x10^3/uL Absolute Nucleated RBC 0.00 (0.00-0.01) x10^3u/L Lymphocytes % 7.1 L (24.0-44.0) % Monocytes % 8.2 (0.0-12.0) % Eosinophils % 1.2 (0.00-5.0) % Basophils % 0.3 (0.0-0.4) % Absolute Granulocytes 9.24 H (1.4-6.9) x10^3/uL Basophils # 0.03 (0-0.4) x10^3/uL Sodium 130 L (137-145) mmol/L Potassium 4.2 (3.5-5.1) mmol/L Chloride 97 L (98-107) mmol/L Carbon Dioxide 26 (22-30) mmol/L Anion Gap 10.6 (5-15) MEQ/L BUN 18 (9-20) mg/dL Creatinine 1.40 H (0.66-1.25) mg/dL Estimated GFR 52.1 ML/MIN Glucose 197 H (74-106) mg/dL POC Glucometer (74 to 106) mg/dL Hemoglobin A1c (4.5-6.0) % Lactic Acid (0.4-2.0) Calcium 8.8 (8.4-10.2) mg/dL Total Bilirubin 1.10 (0.2-1.3) mg/dL AST 38 (17-59) U/L ALT 38 (0-50) U/L Alkaline Phosphatase 110 (38-126) U/L Troponin I < 0.012 (0.000-0.034) ng/mL NT-Pro-B Natriuret Pep (<300) pg/mL Serum Total Protein 7.2 (6.3-8.2) g/dL Albumin 3.8 (3.5-5.0) g/dL Lipase 87 (23-300) U/L Procalcitonin (0.030-0.080) ng/mL Urine Color (Yellow) Urine Appearance (Clear) Urine pH (4.6-8.0) Ur Specific [place] (1.005-1.030) Urine Protein (Negative) Urine Glucose (UA) (Negative) mg/dL Urine Ketones (Negative) Urine Blood (Negative) Urine Nitrite (Negative) Urine Bilirubin (Negative) Urine Urobilinogen (0.2) mg/dL Ur Leukocyte Esterase (Negative) U Hyaline Cast (Auto) (0-2) /LPF Urine Microscopic RBC (0-5) /HPF Urine Microscopic WBC (0-5) /HPF Ur Epithelial Cells (None Seen) /HPF Urine Bacteria (None Seen) /HPF Urine Culture Reflexed (NO) Slides for Path Review 08/28/23 08/28/23 08/28/23 Range/Units 17:50 19:44 19:54 WBC (4.0-10.5) x10^3/uL RBC (4.1-5.6) x10^6/uL Hgb (12.5-18.0) g/dL Hct (42-50) % MCV (78-100) fL MCH (26-32) pg MCHC (32-36) g/dL RDW (11.5-14.0) % Plt Count (150-450) x10^3/uL MPV (7.5-11.0) fL Gran % (36.0-66.0) % Immature Gran % (Auto) (0.00-0.4) % Nucleat RBC Rel Count (0.00-0.1) % Eos # (Auto) (0-0.5) x10^3/uL Immature Gran # (Auto) (0.00-0.03) x10^3u/L Absolute Lymphs (auto) (1.0-4.6) x10^3/uL Absolute Monos (auto) (0.0-1.3) x10^3/uL Absolute Nucleated RBC (0.00-0.01) x10^3u/L Lymphocytes % (24.0-44.0) % Monocytes % (0.0-12.0) % Eosinophils % (0.00-5.0) % Basophils % (0.0-0.4) % Absolute Granulocytes (1.4-6.9) x10^3/uL Basophils # (0-0.4) x10^3/uL Sodium (137-145) mmol/L Potassium (3.5-5.1) mmol/L Chloride (98-107) mmol/L Carbon Dioxide (22-30) mmol/L Anion Gap (5-15) MEQ/L BUN (9-20) mg/dL Creatinine (0.66-1.25) mg/dL Estimated GFR ML/MIN Glucose (74-106) mg/dL POC Glucometer (74 to 106) mg/dL Hemoglobin A1c (4.5-6.0) % Lactic Acid 2.4 H 1.5 (0.4-2.0) Calcium (8.4-10.2) mg/dL Total Bilirubin (0.2-1.3) mg/dL AST (17-59) U/L ALT (0-50) U/L Alkaline Phosphatase (38-126) U/L Troponin I (0.000-0.034) ng/mL NT-Pro-B Natriuret Pep (<300) pg/mL Serum Total Protein (6.3-8.2) g/dL Albumin (3.5-5.0) g/dL Lipase (23-300) U/L Procalcitonin (0.030-0.080) ng/mL Urine Color Yellow (Yellow) Urine Appearance Cloudy A (Clear) Urine pH 5.5 (4.6-8.0) Ur Specific [place] 1.015 (1.005-1.030) Urine Protein 100 A (Negative) Urine Glucose (UA) 100 A (Negative) mg/dL Urine Ketones 15 A (Negative) Urine Blood Negative (Negative) Urine Nitrite Negative (Negative) Urine Bilirubin Negative (Negative) Urine Urobilinogen 1.0 A (0.2) mg/dL Ur Leukocyte Esterase Negative (Negative) U Hyaline Cast (Auto) 6-10 A (0-2) /LPF Urine Microscopic RBC 0-2 (0-5) /HPF Urine Microscopic WBC 0-2 (0-5) /HPF Ur Epithelial Cells None Seen (None Seen) /HPF Urine Bacteria None Seen (None Seen) /HPF Urine Culture Reflexed NO (NO) Slides for Path Review 08/28/23 08/29/23 08/29/23 Range/Units 21:20 01:46 01:46 WBC 18.0 H (4.0-10.5) x10^3/uL RBC 3.72 L (4.1-5.6) x10^6/uL Hgb 12.0 L (12.5-18.0) g/dL Hct 36.7 L (42-50) % MCV 98.7 (78-100) fL MCH 32.3 H (26-32) pg MCHC 32.7 (32-36) g/dL RDW 13.3 (11.5-14.0) % Plt Count 291 (150-450) x10^3/uL MPV 10.1 (7.5-11.0) fL Gran % 85.5 H (36.0-66.0) % Immature Gran % (Auto) 0.6 H (0.00-0.4) % Nucleat RBC Rel Count 0.0 (0.00-0.1) % Eos # (Auto) 0.01 (0-0.5) x10^3/uL Immature Gran # (Auto) 0.11 H (0.00-0.03) x10^3u/L Absolute Lymphs (auto) 0.92 L (1.0-4.6) x10^3/uL Absolute Monos (auto) 1.54 H (0.0-1.3) x10^3/uL Absolute Nucleated RBC 0.00 (0.00-0.01) x10^3u/L Lymphocytes % 5.1 L (24.0-44.0) % Monocytes % 8.5 (0.0-12.0) % Eosinophils % 0.1 (0.00-5.0) % Basophils % 0.2 (0.0-0.4) % Absolute Granulocytes 15.41 H (1.4-6.9) x10^3/uL Basophils # 0.03 (0-0.4) x10^3/uL Sodium (137-145) mmol/L Potassium (3.5-5.1) mmol/L Chloride (98-107) mmol/L Carbon Dioxide (22-30) mmol/L Anion Gap (5-15) MEQ/L BUN (9-20) mg/dL Creatinine (0.66-1.25) mg/dL Estimated GFR ML/MIN Glucose (74-106) mg/dL POC Glucometer (74 to 106) mg/dL Hemoglobin A1c (4.5-6.0) % Lactic Acid (0.4-2.0) Calcium (8.4-10.2) mg/dL Total Bilirubin (0.2-1.3) mg/dL AST (17-59) U/L ALT (0-50) U/L Alkaline Phosphatase (38-126) U/L Troponin I < 0.012 0.015 (0.000-0.034) ng/mL NT-Pro-B Natriuret Pep (<300) pg/mL Serum Total Protein (6.3-8.2) g/dL Albumin (3.5-5.0) g/dL Lipase (23-300) U/L Procalcitonin (0.030-0.080) ng/mL Urine Color (Yellow) Urine Appearance (Clear) Urine pH (4.6-8.0) Ur Specific [place] (1.005-1.030) Urine Protein (Negative) Urine Glucose (UA) (Negative) mg/dL Urine Ketones (Negative) Urine Blood (Negative) Urine Nitrite (Negative) Urine Bilirubin (Negative) Urine Urobilinogen (0.2) mg/dL Ur Leukocyte Esterase (Negative) U Hyaline Cast (Auto) (0-2) /LPF Urine Microscopic RBC (0-5) /HPF Urine Microscopic WBC (0-5) /HPF Ur Epithelial Cells (None Seen) /HPF Urine Bacteria (None Seen) /HPF Urine Culture Reflexed (NO) Slides for Path Review YES 08/29/23 08/29/23 08/29/23 Range/Units 01:46 02:21 02:21 WBC (4.0-10.5) x10^3/uL RBC (4.1-5.6) x10^6/uL Hgb (12.5-18.0) g/dL Hct (42-50) % MCV (78-100) fL MCH (26-32) pg MCHC (32-36) g/dL RDW (11.5-14.0) % Plt Count (150-450) x10^3/uL MPV (7.5-11.0) fL Gran % (36.0-66.0) % Immature Gran % (Auto) (0.00-0.4) % Nucleat RBC Rel Count (0.00-0.1) % Eos # (Auto) (0-0.5) x10^3/uL Immature Gran # (Auto) (0.00-0.03) x10^3u/L Absolute Lymphs (auto) (1.0-4.6) x10^3/uL Absolute Monos (auto) (0.0-1.3) x10^3/uL Absolute Nucleated RBC (0.00-0.01) x10^3u/L Lymphocytes % (24.0-44.0) % Monocytes % (0.0-12.0) % Eosinophils % (0.00-5.0) % Basophils % (0.0-0.4) % Absolute Granulocytes (1.4-6.9) x10^3/uL Basophils # (0-0.4) x10^3/uL Sodium 129 L (137-145) mmol/L Potassium 4.0 (3.5-5.1) mmol/L Chloride 98 (98-107) mmol/L Carbon Dioxide 24 (22-30) mmol/L Anion Gap 10.8 (5-15) MEQ/L BUN 19 (9-20) mg/dL Creatinine 1.44 H (0.66-1.25) mg/dL Estimated GFR 50.4 ML/MIN Glucose 169 H (74-106) mg/dL POC Glucometer (74 to 106) mg/dL Hemoglobin A1c 7.10 H (4.5-6.0) % Lactic Acid (0.4-2.0) Calcium 8.4 (8.4-10.2) mg/dL Total Bilirubin 1.10 (0.2-1.3) mg/dL AST 27 (17-59) U/L ALT 30 (0-50) U/L Alkaline Phosphatase 81 (38-126) U/L Troponin I (0.000-0.034) ng/mL NT-Pro-B Natriuret Pep 1020 (<300) pg/mL Serum Total Protein 6.0 L (6.3-8.2) g/dL Albumin 3.1 L (3.5-5.0) g/dL Lipase (23-300) U/L Procalcitonin 10.300 H* (0.030-0.080) ng/mL Urine Color (Yellow) Urine Appearance (Clear) Urine pH (4.6-8.0) Ur Specific [place] (1.005-1.030) Urine Protein (Negative) Urine Glucose (UA) (Negative) mg/dL Urine Ketones (Negative) Urine Blood (Negative) Urine Nitrite (Negative) Urine Bilirubin (Negative) Urine Urobilinogen (0.2) mg/dL Ur Leukocyte Esterase (Negative) U Hyaline Cast (Auto) (0-2) /LPF Urine Microscopic RBC (0-5) /HPF Urine Microscopic WBC (0-5) /HPF Ur Epithelial Cells (None Seen) /HPF Urine Bacteria (None Seen) /HPF Urine Culture Reflexed (NO) Slides for Path Review 08/29/23 08/29/23 Range/Units 07:55 13:23 WBC (4.0-10.5) x10^3/uL RBC (4.1-5.6) x10^6/uL Hgb (12.5-18.0) g/dL Hct (42-50) % MCV (78-100) fL MCH (26-32) pg MCHC (32-36) g/dL RDW (11.5-14.0) % Plt Count (150-450) x10^3/uL MPV (7.5-11.0) fL Gran % (36.0-66.0) % Immature Gran % (Auto) (0.00-0.4) % Nucleat RBC Rel Count (0.00-0.1) % Eos # (Auto) (0-0.5) x10^3/uL Immature Gran # (Auto) (0.00-0.03) x10^3u/L Absolute Lymphs (auto) (1.0-4.6) x10^3/uL Absolute Monos (auto) (0.0-1.3) x10^3/uL Absolute Nucleated RBC (0.00-0.01) x10^3u/L Lymphocytes % (24.0-44.0) % Monocytes % (0.0-12.0) % Eosinophils % (0.00-5.0) % Basophils % (0.0-0.4) % Absolute Granulocytes (1.4-6.9) x10^3/uL Basophils # (0-0.4) x10^3/uL Sodium (137-145) mmol/L Potassium (3.5-5.1) mmol/L Chloride (98-107) mmol/L Carbon Dioxide (22-30) mmol/L Anion Gap (5-15) MEQ/L BUN (9-20) mg/dL Creatinine (0.66-1.25) mg/dL Estimated GFR ML/MIN Glucose (74-106) mg/dL POC Glucometer 168 H 155 H (74 to 106) mg/dL Hemoglobin A1c (4.5-6.0) % Lactic Acid (0.4-2.0) Calcium (8.4-10.2) mg/dL Total Bilirubin (0.2-1.3) mg/dL AST (17-59) U/L ALT (0-50) U/L Alkaline Phosphatase (38-126) U/L Troponin I (0.000-0.034) ng/mL NT-Pro-B Natriuret Pep (<300) pg/mL Serum Total Protein (6.3-8.2) g/dL Albumin (3.5-5.0) g/dL Lipase (23-300) U/L Procalcitonin (0.030-0.080) ng/mL Urine Color (Yellow) Urine Appearance (Clear) Urine pH (4.6-8.0) Ur Specific [place] (1.005-1.030) Urine Protein (Negative) Urine Glucose (UA) (Negative) mg/dL Urine Ketones (Negative) Urine Blood (Negative) Urine Nitrite (Negative) Urine Bilirubin (Negative) Urine Urobilinogen (0.2) mg/dL Ur Leukocyte Esterase (Negative) U Hyaline Cast (Auto) (0-2) /LPF Urine Microscopic RBC (0-5) /HPF Urine Microscopic WBC (0-5) /HPF Ur Epithelial Cells (None Seen) /HPF Urine Bacteria (None Seen) /HPF Urine Culture Reflexed (NO) Slides for Path Review Radiology Exams: Radiology Procedures Category Date Time Status ABDOMEN AND PELVIS W/0 CONTRAS [CT] Stat Exams 08/28/23 17:09 Completed CHEST WITHOUT CONTRAST [CT] Stat Exams 08/28/23 18:00 Completed <DEVORA CABRERA - Last Filed: 08/29/23 16:56> Assessment/Plan (1) Leukocytosis, unspecified Current Visit: Yes Status: Acute Assessment & Plan: -Infectious vs reactive etiology -CT chest with few nodular densities in the upper lobe of the right lung, most likely representing infectious/ inflammatory etiology -UA negative for infectious process -will treat empirically with Ceftriaxone/azithromycin -WBC at 18 Code(s): D72.829 - ELEVATED WHITE BLOOD CELL COUNT, UNSPECIFIED (2) Acute kidney injury Current Visit: Yes Status: Acute Assessment & Plan: -baseline creat around 1.2 -Gentle hydration -Monitor renal/lytes -Avoid NSAIDs/ARBS/Diurectics/SHANTI Code(s): N17.9 - ACUTE KIDNEY FAILURE, UNSPECIFIED (3) Abdominal pain Current Visit: Yes Status: Acute Assessment & Plan: Etiology unclear as CT scans negative for cholecystitis or colon issue - ? costochondritis -Pain control -LFTs wnl -Lipase wnl Code(s): R10.9 - UNSPECIFIED ABDOMINAL PAIN (4) Hypertensive chronic kidney disease with stage 1 through stage 4 chronic kidney disease, or unspecified chronic kidney disease Current Visit: Yes Status: Acute Assessment & Plan: -Stable, continue home medications Code(s): I12.9 - HYPERTENSIVE CHRONIC KIDNEY DISEASE W STG 1-4/UNSP CHR KDNY (5) Hyponatremia with excess extracellular fluid volume Current Visit: Yes Status: Acute Assessment & Plan: -Most likely hypovolemia secondary to poor oral intake -Patient is not edematous -Monitor renal/lytes daily -Gentle hydration -corrected sodium with mild hyperglycemia at 130 Code(s): E87.1 - HYPO-OSMOLALITY AND HYPONATREMIA (6) Pleural effusion Current Visit: Yes Status: Acute Assessment & Plan: Etiology unclear -Will start empiric antibiotics ceftriaxone/azithromycin -IS -Follow up with Dr. Matias as scheduled for workup of pulmonary nodules Code(s): J90 - PLEURAL EFFUSION, NOT ELSEWHERE CLASSIFIED (7) COPD (chronic obstructive pulmonary disease) Current Visit: Yes Status: Acute Assessment & Plan: -At baseline RA, does not appear to be in exacerbation -Supplemental oxygen for target spo2 >92% -NEBs/INH prn <GAVIN ROD - Last Filed: 08/29/23 10:51> HAYDE Encounter - HAYDE Encounter Attestation HAYDE Encounter Attestation: "MEE Black andhavediscussed pertinent aspects of their care with Gavin Knox agree with the history, physical exam (any modifications based on my personal exam will be noted below), assessment, and plan as outlined in original note. Please see immediately below for my summary of findings and additional assessment and plan along with any meaningful corrections/explanations to the Subjective/Objective portions of the HAYDE note will be noted." My portion of the encounter took place via telemedicine. -Patient with right lower chest pain, small pleural effusion seen on CT. Has worsening leukocytosis, will changed antibiotics to zosyn, though no clear source of infection. 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 <DEVORA CABRERA - Last Filed: 08/29/23 16:56>
[2023-08-29] MEDS: ROCEPHIN 1 GM / 100 ML NaCl 1 GM/100 ML IVPB IV SCH ×2 (07:02→09:17)
[2023-08-29] MEDS ORDERED: HUMALOG SQ PRN (08:21)
[2023-08-29] MEDS: Sodium Chloride 0.9% 1000 ML 1,000 ML IV SCH (09:10)
[2023-08-29] MEDS: PROTONIX 40 MG IV IV SCH (09:10)
[2023-08-29] MEDS: xanAX 0.25 MG PO SCH (09:17)
[2023-08-29] MEDS: ECOTRIN 81 MG PO SCH (09:17)
[2023-08-29] MEDS: ENOXAPARIN SODIUM SQ SCH (09:17)
[2023-08-29] MEDS ORDERED: Protonix 40MG Tablet PO SCH (10:00)
[2023-08-29] MEDS: Zithromax 500 MG/ 250 ML NaCl Premix 500 MG/250 ML IVPB IV SCH (10:10)
[2023-08-29] MEDS: NORCO 5/325 MG PO PRN (10:54)
[2023-08-29] MEDS: Inderal PO SCH (11:15)
[2023-08-29] MEDS: PIPERACILLIN/TAZOBACTAM 3.375 GM in Sodium Chloride 100ML MINI-BAG PLUS 100 ML IV SCH (17:09)
[2023-08-29] MEDS: xanAX 0.25 MG PO ONE (17:55)
[2023-08-29] MEDS: TYLENOL 325 MG PO PRN (20:45)
[2023-08-29] MEDS ORDERED: xanAX 0.25 MG PO SCH (21:15)
[2023-08-29] MEDS: Mucinex 600MG ER Tabs PO PRN (21:28)
[2023-08-29] MEDS: Zocor 10MG PO SCH (21:28)
[2023-08-29] MEDS: xanAX 0.25 MG PO PRN (21:29)
[2023-08-30 06:35] LABS: Hematocrit 35.5 % (42-50); Hemoglobin 11.5 g/dL (12.5-18.0); Mean Cell Volume 98.1 fL (78-100); Mean Corpuscular Hemoglobin 31.8 pg (26-32); Mean Corpuscular Hgb Concent. 32.4 g/dL (32-36); Mean Platelet Volume 10.4 fL (7.5-11.0); Platelet Count 317 x10^3/uL (150-450); Red Blood Count 3.62 x10^6/uL (4.1-5.6); Red Cell Distribution Width 13.6 % (11.5-14.0)
[2023-08-30 06:43] LABS: White Blood Count 26.9 x10^3/uL (4.0-10.5)
[2023-08-30 06:49] LABS: ALBUMIN 3.1 g/dL (3.5-5.0); ANION GAP 8.3 MEQ/L (5-15); BILIRUBIN,TOTAL 1.4 mg/dL (0.2-1.3); Calcium 8.6 mg/dL (8.4-10.2); Creatinine 1 1.57 mg/dL (0.66-1.25); EST GLOMERULAR FILTRATION RATE 45.4 ML/MIN; Total Protein 6.1 g/dL (6.3-8.2)
[2023-08-30 07:40] LABS: Lymphocytes 3 % (24-44); Monocyte 5 % (0.0-12.0); Neutrophils 92 % (36.-66.); Total Cells Counted 100
[2023-08-30 07:42] LABS: Platelet Estimate NORMAL (NORMAL)
[2023-08-30] MEDS: PATIENT OWN MEDICATION IH SCH (09:25)
[2023-08-30] MEDS: Vitamin B-12 500 MCG PO SCH (09:56)
[2023-08-30] MEDS ORDERED: PROPRANOLOL HCL 80 MG PO SCH (10:00)
[2023-08-30] MEDS ORDERED: NON-FORMULARY ITEM (Rosuvastatin Calcium [Rosuvastatin Calcium] 10 MG Tablet) PO SCH (10:00)
[2023-08-30] MEDS ORDERED: NON-FORMULARY ITEM (Cyanocobalamin (Vitamin B-12) [Vitamin B12] 2,500 MCG Tablet) PO SCH (10:00)
[2023-08-30] MEDS ORDERED: ECOTRIN 81 MG PO SCH (10:00)
[2023-08-30 10:59] LABS: INFLUENZA A NEGATIVE (NEGATIVE); INFLUENZA B NEGATIVE (NEGATIVE); RESPIRATORY SYNCTIAL VIRUS NEGATIVE (NEGATIVE); SARS-CoV-2 Xpert Express NEGATIVE (NEGATIVE)
--- NOTE | 2023-08-30 11:33 | PCM.NOTE ---
Date and Time: 08/30/23 1128 Subjective Assessment: Mr. John is a 78 year old male with a past medical history significant for hypertension, hyperlipidemia, diabetes mellitus, and COPD who presented to ED 08/28/23 with complaints of right sided pain in his abdomen starting approximately three hours prior to arrival. He describes the pain as under his right rib with no radiation, aggravated after eating and deep breathing. Patient reports that starting in June he was placed on metformin by his pcp and had GI upset and weight loss so he stopped taking it about three weeks later. He does report a poor appetite with approximately a 27 pound weight loss since June. His PCP has evaluated the weight loss with recent OP imaging noting a hiatal hernia as well as pulmonary nodules. He has appointments scheduled with P[facility] Perez in September for EGD and Dr. Tavares for follow up on the pulmonary nodules this coming Wednesday. Imaging repeat with CT abdomen and pelvis showing diverticuli and enlarged prostate. CT chest showing right small pleural effusion and fibroitc changes, a few nodular densities the the RUL. Patient admitted with abdominal pain, SANDEEP, hyponatremia, and pleural effusion. Pulmonology Dr. Amor consulted and he explained the pt can be followed Op. Consulted surgery for further eval, thoracentesis and EGD. Pt developed a fever overnight and WBC is more elevated at 26.9 today. Lactic acid is WNL. BC X2 ordered and sputum culture ordered. Flu, COVID, RSV all negative. Pt overall does not feel well and sxs have not improved since yesterday. Zosyn changed to Merrem. Pt denies CP, Abd. pain, N/V/D. - Review of Systems Constitutional: Weight Loss (30 lbs since June), No Fever, No Chills Eyes: No Symptoms Ears, Nose, & Throat: No Symptoms, Other (dysphagia) Respiratory: Short Of Breath, No Cough Cardiac: Orthopnea, No Chest Pain, No Edema, No Syncope Abdominal/Gastrointestinal: No Abdominal Pain, No Nausea, No Vomiting, No Diarrhea Genitourinary Symptoms: No Dysuria Musculoskeletal: No Back Pain, No Neck Pain Skin: No Rash Neurological: No Dizziness, No Focal Weakness, No Sensory Changes Psychological: No Symptoms Endocrine: No Symptoms Hematologic/Lymphatic: No Symptoms Immunological/Allergic: No Symptoms Objective Exam General Appearance: no apparent distress, alert Neurologic Exam: alert, oriented x 3, cooperative, normal mood/affect, nml cerebellar function, sensation nml, No motor deficits Skin Exam: normal color, warm, dry Eye Exam: PERRL, EOMI, eyes nml inspection Ears, Nose, Throat Exam: normal ENT inspection, pharynx normal, moist mucous membranes Neck Exam: normal inspection, non-tender, supple, full range of motion Respiratory Exam: normal breath sounds, lungs clear, No respiratory distress Cardiovascular Exam: regular rate/rhythm, normal heart sounds Gastrointestinal/Abdomen Exam: soft, No tenderness, No mass Extremity Exam: normal inspection, normal range of motion Back Exam: normal inspection, normal range of motion, No CVA tenderness, No vertebral tenderness Male Genitalia Exam: deferred Rectal Exam: deferred OBJECTIVE DATA Vital Signs: Vital Signs - 24 hr Temp Pulse Resp BP Pulse Ox 08/30/23 09:25 82 20 94 L 08/30/23 07:11 97.8 F 64 20 116/58 94 L 08/30/23 04:00 98.8 F 107 H 27 H 127/64 95 08/30/23 00:00 99.1 F 98 H 22 125/62 95 08/29/23 20:00 102.3 F 121 H 26 H 144/74 99 08/29/23 18:16 115 H 28 H 89 L 08/29/23 16:00 98.2 F 98 H 18 111/55 97 08/29/23 14:46 100 H 18 96 08/29/23 12:00 98.1 F 84 16 90/51 91 L Pain Assessment - Last Documented Pain Intensity 4 Pain Scale Used 0-10 Pain Scale Intake and Output: Intake & Output 08/27/23 08/28/23 08/29/23 08/30/23 11:59 11:59 11:59 11:59 Intake Total 320 1460 Output Total 100 525 Balance 220 935 Weight 67.4 kg Lab Results: Lab Results-Last 24 Hours 08/29/23 08/29/23 08/29/23 Range/Units 02:21 13:23 16:59 WBC (4.0-10.5) x10^3/uL RBC (4.1-5.6) x10^6/uL Hgb (12.5-18.0) g/dL Hct (42-50) % MCV (78-100) fL MCH (26-32) pg MCHC (32-36) g/dL RDW (11.5-14.0) % Plt Count (150-450) x10^3/uL MPV (7.5-11.0) fL Segmented Neutrophils (36.-66.) % Lymphocytes (Manual) (24-44) % Monocytes (Manual) (0.0-12.0) % Platelet Estimate (NORMAL) RBC Morphology Smear Path Review Sodium (137-145) mmol/L Potassium (3.5-5.1) mmol/L Chloride (98-107) mmol/L Carbon Dioxide (22-30) mmol/L Anion Gap (5-15) MEQ/L BUN (9-20) mg/dL Creatinine (0.66-1.25) mg/dL Estimated GFR ML/MIN Glucose (74-106) mg/dL POC Glucometer 155 H 193 H (74 to 106) mg/dL Lactic Acid (0.4-2.0) Calcium (8.4-10.2) mg/dL Total Bilirubin (0.2-1.3) mg/dL AST (17-59) U/L ALT (0-50) U/L Alkaline Phosphatase (38-126) U/L Serum Total Protein (6.3-8.2) g/dL Albumin (3.5-5.0) g/dL Procalcitonin 10.300 H* (0.030-0.080) ng/mL Influenza Type A Ag (NEGATIVE) Influenza Type B Ag (NEGATIVE) RSV (PCR) (NEGATIVE) SARS-CoV-2 (PCR) (NEGATIVE) 08/29/23 08/30/23 08/30/23 Range/Units 21:16 06:20 06:20 WBC 26.9 H* (4.0-10.5) x10^3/uL RBC 3.62 L (4.1-5.6) x10^6/uL Hgb 11.5 L (12.5-18.0) g/dL Hct 35.5 L (42-50) % MCV 98.1 (78-100) fL MCH 31.8 (26-32) pg MCHC 32.4 (32-36) g/dL RDW 13.6 (11.5-14.0) % Plt Count 317 (150-450) x10^3/uL MPV 10.4 (7.5-11.0) fL Segmented Neutrophils 92 H (36.-66.) % Lymphocytes (Manual) 3 L (24-44) % Monocytes (Manual) 5 (0.0-12.0) % Platelet Estimate NORMAL (NORMAL) RBC Morphology NORMAL Smear Path Review Cancelled Sodium 129 L (137-145) mmol/L Potassium 4.0 (3.5-5.1) mmol/L Chloride 98 (98-107) mmol/L Carbon Dioxide 27 (22-30) mmol/L Anion Gap 8.3 (5-15) MEQ/L BUN 23 H (9-20) mg/dL Creatinine 1.57 H (0.66-1.25) mg/dL Estimated GFR 45.4 ML/MIN Glucose 142 H (74-106) mg/dL POC Glucometer 184 H (74 to 106) mg/dL Lactic Acid (0.4-2.0) Calcium 8.6 (8.4-10.2) mg/dL Total Bilirubin 1.40 H (0.2-1.3) mg/dL AST 33 (17-59) U/L ALT 26 (0-50) U/L Alkaline Phosphatase 97 (38-126) U/L Serum Total Protein 6.1 L (6.3-8.2) g/dL Albumin 3.1 L (3.5-5.0) g/dL Procalcitonin (0.030-0.080) ng/mL Influenza Type A Ag (NEGATIVE) Influenza Type B Ag (NEGATIVE) RSV (PCR) (NEGATIVE) SARS-CoV-2 (PCR) (NEGATIVE) 08/30/23 08/30/23 08/30/23 Range/Units 06:56 08:20 10:15 WBC (4.0-10.5) x10^3/uL RBC (4.1-5.6) x10^6/uL Hgb (12.5-18.0) g/dL Hct (42-50) % MCV (78-100) fL MCH (26-32) pg MCHC (32-36) g/dL RDW (11.5-14.0) % Plt Count (150-450) x10^3/uL MPV (7.5-11.0) fL Segmented Neutrophils (36.-66.) % Lymphocytes (Manual) (24-44) % Monocytes (Manual) (0.0-12.0) % Platelet Estimate (NORMAL) RBC Morphology Smear Path Review Sodium (137-145) mmol/L Potassium (3.5-5.1) mmol/L Chloride (98-107) mmol/L Carbon Dioxide (22-30) mmol/L Anion Gap (5-15) MEQ/L BUN (9-20) mg/dL Creatinine (0.66-1.25) mg/dL Estimated GFR ML/MIN Glucose (74-106) mg/dL POC Glucometer 129 H (74 to 106) mg/dL Lactic Acid 1.9 (0.4-2.0) Calcium (8.4-10.2) mg/dL Total Bilirubin (0.2-1.3) mg/dL AST (17-59) U/L ALT (0-50) U/L Alkaline Phosphatase (38-126) U/L Serum Total Protein (6.3-8.2) g/dL Albumin (3.5-5.0) g/dL Procalcitonin (0.030-0.080) ng/mL Influenza Type A Ag NEGATIVE (NEGATIVE) Influenza Type B Ag NEGATIVE (NEGATIVE) RSV (PCR) NEGATIVE (NEGATIVE) SARS-CoV-2 (PCR) NEGATIVE (NEGATIVE) Radiology Exams: Radiology Procedures Category Date Time Status ABDOMEN AND PELVIS W/0 CONTRAS [CT] Stat Exams 08/28/23 17:09 Completed CHEST WITHOUT CONTRAST [CT] Stat Exams 08/28/23 18:00 Completed Multi-Disciplinary Progress Notes: Multi-Disciplinary Progress Notes 08/30/23 11:26 Physical Therapy Note by Odalis(L#[id number])Gabriela SPOKE W/ PT. AND FAMILY BRIEFLY. PT'S WBC COUNT IS ELEVATED AND HE WAS SLEEPING AT TIME OF ATTEMPT @ P.T. EVAL. FAMILY REQUESTED THAT THERAPY HOLD UNTIL LATER TODAY OR TOMORROW. Initialized on 08/30/23 11:26 - END OF NOTE 08/30/23 08:19 Pharmacy Note by Garo Zamudio Merrem dose decreased to 1gm iv q12h per renal dosing policy. Estimated crcl is 38ml/min. Initialized on 08/30/23 08:19 - END OF NOTE Assessment/Plan (1) Leukocytosis, unspecified Current Visit: Yes Status: Acute Assessment & Plan: - Procal 10.300 on 08/29 - Lactic acid 1.9 on 08/30 - WBC 26.9 on 08/30- antibiotics changed to Merrem - Chest CT 08/28 IMPRESSION: 1. Again a few nodular densities in the upper lobe of the right lung, most likely representing infectious/ inflammatory etiology (no changes on interval). 2. Right-sided minimal pleural effusion, up to 1.3 cm. This is a new finding. 3. Right apical calcific fibrotic changes, denoting sequela/ previous granulomatous infection (no changes on interval). 4. Right infra hilar and peribronchiolar a few calcified lymph nodes, likely representing sequela of previous granulomatous infection (no changes on interval). 5. A tiny subpleural nonspecific nodule measuring 3 mm within the lateral basal segment of the left lower lobe (no changes on interval). 6. Large hiatal hernia (no changes on interval) 7. Old osteoporotic compression fracture of T4 (no changes on interval). 8. Correlate clinically. Follow-up recommended. - Pulm consulted on 08/29 - on 08/30 Pulm explained pt can F/u OP no emergent needs - Surgery consulted for thoracentesis and EGD Code(s): D72.829 - ELEVATED WHITE BLOOD CELL COUNT, UNSPECIFIED (2) Abdominal pain Current Visit: Yes Status: Resolved Assessment & Plan: - resolved - CT abd/ Pelvis IMPRESSION: 1. Multiple small colon diverticuli without inflammation findings 2. Calcific splenic foci, most likely corresponding to granulomas. 3. Appendix is unremarkable 4. The prostate is enlarged. Further evaluation with PSA and the US is recommended. 5. No major changes on interval. Code(s): R10.9 - UNSPECIFIED ABDOMINAL PAIN (3) Acute kidney injury Current Visit: Yes Status: Acute Assessment & Plan: -baseline creat around 1.2 -Monitor renal/lytes -Avoid NSAIDs/ARBS/Diurectics/SHANTI - trend labs Code(s): N17.9 - ACUTE KIDNEY FAILURE, UNSPECIFIED (4) COPD (chronic obstructive pulmonary disease) Current Visit: Yes Status: Acute Assessment & Plan: -At baseline RA, does not appear to be in exacerbation -Supplemental oxygen for target spo2 >92% -NEBs/INH prn (5) Hypertensive chronic kidney disease with stage 1 through stage 4 chronic kidney disease, or unspecified chronic kidney disease Current Visit: Yes Status: Chronic Assessment & Plan: -Stable, continue home medications Code(s): I12.9 - HYPERTENSIVE CHRONIC KIDNEY DISEASE W STG 1-4/UNSP CHR KDNY (6) Hyponatremia with excess extracellular fluid volume Current Visit: Yes Status: Acute Assessment & Plan: - Na+ 129- trend - 2/2 poor intake Code(s): E87.1 - HYPO-OSMOLALITY AND HYPONATREMIA (7) Pleural effusion Current Visit: Yes Status: Acute Assessment & Plan: - as seen on CT - GS consulted for thoracentesis Code(s): J90 - PLEURAL EFFUSION, NOT ELSEWHERE CLASSIFIED (8) Dysphagia Current Visit: Yes Status: Acute Assessment & Plan: - GS consulted for EGD - Pt reported sxs since June with 30lb weight loss Code(s): R13.10 - DYSPHAGIA, UNSPECIFIED (9) Enlarged prostate Current Visit: Yes Status: Acute Assessment & Plan: - Seen on CT abd/ pelvis - Pt unaware of findings previously - PSA - Consider US - UC pending VTE: Lovenox PPI: Protonix Next of Kin: - Florinda John [phone] D/C plan: 2-3 days Code status: Full Code(s): N40.0 - BENIGN PROSTATIC HYPERPLASIA WITHOUT LOWER URINRY TRACT SYMP
[2023-08-30] MEDS: Merrem 1 GM in Sodium Chloride 100ML MINI-BAG PLUS 100 ML IV SCH (11:38)
[2023-08-30] MEDS: TYLENOL 325 MG PO PRN (13:56)
[2023-08-30] MEDS: DUONEB 0.5-3 MG/3 ml Neb IH SCH (14:43)
[2023-08-30] MEDS ORDERED: Sodium Chloride 0.9% 500 ML 500 ML IV ONE (22:10)
[2023-08-30] MEDS: Sodium Chloride 0.9% 500 ML 500 ML IV ONE (22:21)
[2023-08-31 03:54] LABS: A-aADO2 193; ABG HEMOGLOBIN 12.3; ABG POTASSIUM 4.6 (3.5-5.1); ARTERIAL BLD GAS O2 SATURATION 90.9 % (95-100); ARTERIAL BLOOD GAS BASE EXCESS -1.8 (-2.0-2.0); ARTERIAL BLOOD GAS FIO2 50 %; ARTERIAL BLOOD GAS PCO2 51 mmHg (35-45); ARTERIAL BLOOD GAS PO2 64 mmHg (75-100); HCO3- 25.1 (22-28); HGB O2 SAT 89.3 g/dF (94-100); Methhemoglobin 0.8 % (1.4-1.5); paO2 pAO1 0.25
[2023-08-31 03:55] LABS: ABG SITE LEFT BRACHIAL
[2023-08-31] MEDS: Ativan 2 MG/1 ML VIAL IV ONE (04:04)
[2023-08-31 04:32] VITALS: TEMP 97.7
[2023-08-31 05:28] LABS: Hematocrit 35.5 % (42-50); Hemoglobin 11.6 g/dL (12.5-18.0); Mean Cell Volume 97.5 fL (78-100); Mean Corpuscular Hemoglobin 31.9 pg (26-32); Mean Corpuscular Hgb Concent. 32.7 g/dL (32-36); Mean Platelet Volume 10.6 fL (7.5-11.0); Platelet Count 351 x10^3/uL (150-450); Red Blood Count 3.64 x10^6/uL (4.1-5.6); Red Cell Distribution Width 13.8 % (11.5-14.0)
[2023-08-31 05:38] LABS: White Blood Count 27.5 x10^3/uL (4.0-10.5)
[2023-08-31 06:31] LABS: ANION GAP 13.4 MEQ/L (5-15); Calcium 8.6 mg/dL (8.4-10.2); Creatinine 1 1.79 mg/dL (0.66-1.25); EST GLOMERULAR FILTRATION RATE 38.8 ML/MIN; Potassium 4.1 mmol/L (3.5-5.1)
[2023-08-31] MEDS: Ativan 2 MG/1 ML VIAL IV PRN (07:00)
[2023-08-31 07:20] VITALS: O2SAT 98
[2023-08-31 08:15] LABS: A-aADO2 386; ABG HEMOGLOBIN 11.7; ABG POTASSIUM 4.4 (3.5-5.1); ABG SITE LEFT RADIAL; ALLEN TEST OK? NO; ARTERIAL BLD GAS O2 SATURATION 99.7 % (95-100); ARTERIAL BLD GAS TIDAL VOLUME 550 cc; ARTERIAL BLOOD GAS BASE EXCESS -1.8 (-2.0-2.0); ARTERIAL BLOOD GAS FIO2 100 %; ARTERIAL BLOOD GAS PCO2 46 mmHg (35-45); ARTERIAL BLOOD GAS PO2 270 mmHg (75-100); ARTERIAL BLOOD GAS VENT MODE AVAPS; ARTERIAL BLOOD GAS pH 7.33 (7.35-7.45); CARBOXYHEMOGLOBIN 0.6 % THgb (0.0-6.9); HCO3- 24.3 (22-28); HGB O2 SAT 98.2 g/dF (94-100); Methhemoglobin 0.9 % (1.4-1.5); paO2 pAO1 0.41
--- NOTE | 2023-08-31 08:56 | XRAY ---
Indication: Short of breath. Comparison: April 15, 2021 Portable chest demonstrates new large right effusion with mid to lower lung compressive atelectasis. Remaining heart and left lung unremarkable. Bony thorax intact again with osteopenia and mild degenerative changes.
--- NOTE | 2023-08-31 09:29 | PCM.DS ---
Discharge Summary Date of Admission: 08/29/23 12:29 Date of Discharge: 08/31/23 Admitting Physician: JONATHAN SAMUEL MD Consults: Consults on Case 08/30/23 10:29 Consult Surgery ROUTINE Primary Care Provider: YOGESH RECINOS JAMAAL Allergies Allergies No Known Drug Allergies Allergy (Verified 08/28/23 21:35) Hospital Summary - Hospital Course Hospital Course: 08/30/23 Mr. John is a 78 year old male with a past medical history significant for hypertension, hyperlipidemia, diabetes mellitus, and COPD who presented to ED 08/28/23 with complaints of right sided pain in his abdomen starting approxi mately three hours prior to arrival. He described the pain as under his right rib with no radiation, aggravated after eating and deep breathing. Patient reports that starting in June he was placed on metformin by his pcp and had GI upset and weight loss so he stopped taking it about three weeks later. He does report a poor appetite with approximately a 27 pound weight loss since June. His PCP has evaluated the weight loss with recent OP imaging noting a hiatal hernia as well as pulmonary nodules. He has appointments scheduled with Pricilla Perez in September for EGD and Dr. Tavares for follow up on the pulmonary nodules this coming Wednesday. Imaging repeat with CT abdomen and pelvis showing diverticuli and enlarged prostate. CT chest showing right small pleural effusion and fibroitc changes, a few nodular densities the the RUL. Patient admitted with abdominal pain, SANDEEP, hyponatremia, and pleural effusion. Pulmonology Dr. Amor consulted and he explained the pt can be followed Op. Consulted surgery for further eval, thoracentesis and EGD. Pt developed a fever overnight and WBC is more elevated at 26.9 today. Lactic acid is WNL. BC X2 ordered and sputum culture ordered. Flu, COVID, RSV all negative. Pt overall does not feel well and sxs have not improved since yesterday. Zosyn changed to Merrem. Pt denies CP, Abd. pain, N/V/D. 08/31/23 Pt worsened overnight. He was placed on bipap and now on AVAPS. He is sleepy and has been getting Ativan Q2 hours so that he will keep oxygen on. Pulm consulted again and recommended Levaquin be added. Transfer in progress for resp failure. Chest XR today shows worsening right atelectasis and new large right effusion. Lactic acid 1.3. ordered a gallbladder US last night. He has no abd. pain c/o at this time. He denies any further concerns at his time. - Vitals & Intake/Output Vital Signs: Vital Signs Temperature 97.7 F 08/31/23 04:00 Pulse Rate 103 H 08/31/23 08:17 Respiratory Rate 29 H 08/31/23 08:17 Blood Pressure 95/53 08/31/23 08:17 O2 Sat by Pulse Oximetry 98 08/31/23 08:17 Intake & Output: Intake & Output 08/28/23 08/29/23 08/30/23 08/31/23 11:59 11:59 11:59 11:59 Intake Total 320 1460 940 Output Total 100 525 300 Balance 220 935 640 Weight 67.4 kg - Lab Result Diagrams: 08/31/23 04:50 08/31/23 04:50 Lab Results-Last 24 Hrs: Lab Results-Last 24 Hours 08/30/23 08/30/23 08/30/23 Range/Units 10:15 11:36 16:46 WBC (4.0-10.5) x10^3/uL RBC (4.1-5.6) x10^6/uL Hgb (12.5-18.0) g/dL Hct (42-50) % MCV (78-100) fL MCH (26-32) pg MCHC (32-36) g/dL RDW (11.5-14.0) % Plt Count (150-450) x10^3/uL MPV (7.5-11.0) fL Puncture Site pCO2 (35-45) mmHg pO2 (75-100) mmHg Base Excess (-2.0-2.0) O2 Saturation (94-100) g/dF ABG pH (7.35-7.45) ABG HCO3 (22-28) ABG O2 Sat (Measured) (95-100) % Marcial Test A-a Gradient a/A Ratio Hemoglobin Carboxyhemoglobin (0.0-6.9) % THgb Methemoglobin (1.4-1.5) % Potassium (3.5-5.1) Temperature C POC O2 Flow Rate % Vent Mode Tidal Volume cc PEEP cmH2O Sodium (137-145) mmol/L Chloride (98-107) mmol/L Carbon Dioxide (22-30) mmol/L Anion Gap (5-15) MEQ/L BUN (9-20) mg/dL Creatinine (0.66-1.25) mg/dL Estimated GFR ML/MIN Glucose (74-106) mg/dL POC Glucometer 183 H 161 H (74 to 106) mg/dL Lactic Acid (0.4-2.0) Calcium (8.4-10.2) mg/dL Total Bilirubin (0.2-1.3) mg/dL AST (17-59) U/L ALT (0-50) U/L Alkaline Phosphatase (38-126) U/L Serum Total Protein (6.3-8.2) g/dL Albumin (3.5-5.0) g/dL Influenza Type A Ag NEGATIVE (NEGATIVE) Influenza Type B Ag NEGATIVE (NEGATIVE) RSV (PCR) NEGATIVE (NEGATIVE) SARS-CoV-2 (PCR) NEGATIVE (NEGATIVE) 08/30/23 08/31/23 08/31/23 Range/Units 21:29 03:49 04:50 WBC 27.5 H* (4.0-10.5) x10^3/uL RBC 3.64 L (4.1-5.6) x10^6/uL Hgb 11.6 L (12.5-18.0) g/dL Hct 35.5 L (42-50) % MCV 97.5 (78-100) fL MCH 31.9 (26-32) pg MCHC 32.7 (32-36) g/dL RDW 13.8 (11.5-14.0) % Plt Count 351 (150-450) x10^3/uL MPV 10.6 (7.5-11.0) fL Puncture Site LEFT BRACHIAL pCO2 51 H (35-45) mmHg pO2 64 L (75-100) mmHg Base Excess -1.8 (-2.0-2.0) O2 Saturation 89.3 L (94-100) g/dF ABG pH 7.30 L (7.35-7.45) ABG HCO3 25.1 (22-28) ABG O2 Sat (Measured) 90.9 L (95-100) % Marcial Test NOT APPLICABLE A-a Gradient 193 a/A Ratio 0.25 Hemoglobin 12.3 Carboxyhemoglobin 1.0 (0.0-6.9) % THgb Methemoglobin 0.8 L (1.4-1.5) % Potassium 4.6 (3.5-5.1) Temperature 37.0 C POC O2 Flow Rate 50 % Vent Mode Tidal Volume cc PEEP cmH2O Sodium (137-145) mmol/L Chloride (98-107) mmol/L Carbon Dioxide (22-30) mmol/L Anion Gap (5-15) MEQ/L BUN (9-20) mg/dL Creatinine (0.66-1.25) mg/dL Estimated GFR ML/MIN Glucose (74-106) mg/dL POC Glucometer 169 H (74 to 106) mg/dL Lactic Acid (0.4-2.0) Calcium (8.4-10.2) mg/dL Total Bilirubin (0.2-1.3) mg/dL AST (17-59) U/L ALT (0-50) U/L Alkaline Phosphatase (38-126) U/L Serum Total Protein (6.3-8.2) g/dL Albumin (3.5-5.0) g/dL Influenza Type A Ag (NEGATIVE) Influenza Type B Ag (NEGATIVE) RSV (PCR) (NEGATIVE) SARS-CoV-2 (PCR) (NEGATIVE) 08/31/23 08/31/23 08/31/23 Range/Units 04:50 07:33 08:05 WBC (4.0-10.5) x10^3/uL RBC (4.1-5.6) x10^6/uL Hgb (12.5-18.0) g/dL Hct (42-50) % MCV (78-100) fL MCH (26-32) pg MCHC (32-36) g/dL RDW (11.5-14.0) % Plt Count (150-450) x10^3/uL MPV (7.5-11.0) fL Puncture Site LEFT RADIAL pCO2 46 H (35-45) mmHg pO2 270 H* (75-100) mmHg Base Excess -1.8 (-2.0-2.0) O2 Saturation 98.2 (94-100) g/dF ABG pH 7.33 L (7.35-7.45) ABG HCO3 24.3 (22-28) ABG O2 Sat (Measured) 99.7 (95-100) % Marcial Test NO A-a Gradient 386 a/A Ratio 0.41 Hemoglobin 11.7 Carboxyhemoglobin 0.6 (0.0-6.9) % THgb Methemoglobin 0.9 L (1.4-1.5) % Potassium 4.1 4.4 (3.5-5.1) Temperature 37.0 C POC O2 Flow Rate 100 % Vent Mode AVAPS Tidal Volume 550 cc PEEP 6.0 cmH2O Sodium 130 L (137-145) mmol/L Chloride 100 (98-107) mmol/L Carbon Dioxide 21 L (22-30) mmol/L Anion Gap 13.4 (5-15) MEQ/L BUN 29 H (9-20) mg/dL Creatinine 1.79 H (0.66-1.25) mg/dL Estimated GFR 38.8 ML/MIN Glucose 144 H (74-106) mg/dL POC Glucometer 144 H (74 to 106) mg/dL Lactic Acid (0.4-2.0) Calcium 8.6 (8.4-10.2) mg/dL Total Bilirubin 1.00 (0.2-1.3) mg/dL AST 27 (17-59) U/L ALT 24 (0-50) U/L Alkaline Phosphatase 132 H (38-126) U/L Serum Total Protein 6.0 L (6.3-8.2) g/dL Albumin 3.0 L (3.5-5.0) g/dL Influenza Type A Ag (NEGATIVE) Influenza Type B Ag (NEGATIVE) RSV (PCR) (NEGATIVE) SARS-CoV-2 (PCR) (NEGATIVE) 08/31/23 Range/Units 08:10 WBC (4.0-10.5) x10^3/uL RBC (4.1-5.6) x10^6/uL Hgb (12.5-18.0) g/dL Hct (42-50) % MCV (78-100) fL MCH (26-32) pg MCHC (32-36) g/dL RDW (11.5-14.0) % Plt Count (150-450) x10^3/uL MPV (7.5-11.0) fL Puncture Site pCO2 (35-45) mmHg pO2 (75-100) mmHg Base Excess (-2.0-2.0) O2 Saturation (94-100) g/dF ABG pH (7.35-7.45) ABG HCO3 (22-28) ABG O2 Sat (Measured) (95-100) % Marcial Test A-a Gradient a/A Ratio Hemoglobin Carboxyhemoglobin (0.0-6.9) % THgb Methemoglobin (1.4-1.5) % Potassium (3.5-5.1) Temperature C POC O2 Flow Rate % Vent Mode Tidal Volume cc PEEP cmH2O Sodium (137-145) mmol/L Chloride (98-107) mmol/L Carbon Dioxide (22-30) mmol/L Anion Gap (5-15) MEQ/L BUN (9-20) mg/dL Creatinine (0.66-1.25) mg/dL Estimated GFR ML/MIN Glucose (74-106) mg/dL POC Glucometer (74 to 106) mg/dL Lactic Acid 1.3 (0.4-2.0) Calcium (8.4-10.2) mg/dL Total Bilirubin (0.2-1.3) mg/dL AST (17-59) U/L ALT (0-50) U/L Alkaline Phosphatase (38-126) U/L Serum Total Protein (6.3-8.2) g/dL Albumin (3.5-5.0) g/dL Influenza Type A Ag (NEGATIVE) Influenza Type B Ag (NEGATIVE) RSV (PCR) (NEGATIVE) SARS-CoV-2 (PCR) (NEGATIVE) Micro Results-Entire Visit: Accuchecks Date 08/31/23 Date 08/30/23 Date 08/30/23 Date 08/30/23 Time 07:45 Time 16:51 Time 11:57 - Radiology Exams Ordered Rad Exams-Entire Visit: Radiology Procedures Category Date Time Status CHEST 1 VIEW (PORTABLE) Stat Exams 08/31/23 08:23 Completed GALLBLADDER [US] Stat Exams 08/31/23 14:46 Ordered MODIFIED BARIUM SWALLOW EXAM Stat Exams 08/31/23 14:48 Ordered - Procedures and Test Procedures and Tests throughout Hospitalization: Therapy Orders & Screens 08/28/23 21:07 Respiratory Therapy Consult ONCE Comment: Reason For Exam: 08/28/23 21:33 Oxygen Nasal Cannula 2 lpm Comment: RT Screen per Nursing Assess ONCE Comment: Protocol Order Physician Instructions: Greater than 3 points order RT Admission Screen Reason For Exam: Triggered on Admission Diagnosis: Right side abdominal pain and Pulmonary Effusion Diagnosis: Right side abdominal pain and Pulmonary Effusion Pneumonia: No Home O2: No Asthma: Yes CHF: No Home CPAP/BIPAP: No Home Nebs/MDI: Yes Total Points: 9 08/28/23 22:32 Respiratory Therapy Assessment DAILY Comment: Diagnosis: Right side abdominal pain and Pulmonary Effusion 08/28/23 22:46 PT Eval & Treat (MD Order) ONCE Reason for Eval:: gait Diagnosis: Right side abdominal pain and Pulmonary Effusion 08/29/23 17:51 Incentive Spirometry UD Comment: Diagnosis: Right side abdominal pain and Pulmonary Effusion 08/30/23 07:00 Respiratory MDI DAILY Comment: Diagnosis: Right side abdominal pain and Pulmonary Effusion 08/30/23 11:23 OT Eval and Treat (MD Order) ROUTINE Comment: Physician Instructions: Reason For Exam: Diagnosis: Right side abdominal pain and Pulmonary Effusion 08/30/23 11:24 Speech Therapy Eval & Treat [ST Eval & Treat (MD Order)] .as ordered Comment: Physician Instructions: Reason For Exam: Evaluate: Yes Treat: Yes Reason for Eval: Daughter is a ST and would like eval. She feels he may be aspirating with eating. Diagnosis: Right side abdominal pain and Pulmonary Effusion 08/31/23 04:29 BiPap/CPAP STAT Comment: Diagnosis: LEUKOCYTOSIS, ABD PAIN, SANDEEP Discharge Exam General Appearance: no apparent distress, lethargy Neurologic Exam: alert, oriented x 3, cooperative, normal mood/affect, nml cerebellar function, sensation nml, No motor deficits Eye Exam: PERRL, EOMI, eyes nml inspection Ears, Nose, Throat Exam: normal ENT inspection, pharynx normal, moist mucous membranes Neck Exam: normal inspection, non-tender, supple, full range of motion Respiratory Exam: normal breath sounds, diminished breath sounds (entire right lobe), No respiratory distress Cardiovascular Exam: regular rate/rhythm, normal heart sounds Gastrointestinal/Abdomen Exam: soft, No tenderness, No mass Male Genitalia Exam: deferred Rectal Exam: deferred Back Exam: normal inspection, normal range of motion, No CVA tenderness, No vertebral tenderness Extremity Exam: normal inspection, normal range of motion Skin Exam: normal color, warm, dry Final Diagnosis/Problem List - Final Discharge Diagnosis/Problem (1) Respiratory failure Current Visit: Yes Status: Acute Assessment & Plan: - Incresed SOB last night- placed on Bipap, now on AVAPS - Ativan Q2 hr for anxiety r/t SOB - Chest XR- reviewed - tx to higher level of care Code(s): J96.90 - RESPIRATORY FAILURE, UNSP, UNSP W HYPOXIA OR HYPERCAPNIA (2) Pneumonia Current Visit: Yes Status: Acute Assessment & Plan: - Procal 10.300 on 08/29 - Lactic acid 1.9 on 08/30 - WBC 26.9 on 08/30- antibiotics changed to Merrem - Chest CT 08/28 IMPRESSION: 1. Again a few nodular densities in the upper lobe of the right lung, most likely representing infectious/ inflammatory etiology (no changes on interval). 2. Right-sided minimal pleural effusion, up to 1.3 cm. This is a new finding. 3. Right apical calcific fibrotic changes, denoting sequela/ previous granulomatous infection (no changes on interval). 4. Right infra hilar and peribronchiolar a few calcified lymph nodes, likely representing sequela of previous granulomatous infection (no changes on interval). 5. A tiny subpleural nonspecific nodule measuring 3 mm within the lateral basal segment of the left lower lobe (no changes on interval). 6. Large hiatal hernia (no changes on interval) 7. Old osteoporotic compression fracture of T4 (no changes on interval). 8. Correlate clinically. Follow-up recommended. - Pulm consulted on 08/29 - on 08/30 Pulm explained pt can F/u OP no emergent needs - Surgery consulted for thoracentesis and EGD 08/31 - WBC 27.5 - lactic acid 1.3 - Levaquin Added per Pulm consult - Chest XR 08/31 Portable chest demonstrates new large right effusion with mid to lower lung compressive atelectasis. Remaining heart and left lung unremarkable. Bony thorax intact again with osteopenia and mild degenerative changes. - BC X2 pending - sputum culture pending Code(s): J18.9 - PNEUMONIA, UNSPECIFIED ORGANISM (3) Abdominal pain Current Visit: Yes Status: Resolved Assessment & Plan: - resolved - CT abd/ Pelvis IMPRESSION: 1. Multiple small colon diverticuli without inflammation findings 2. Calcific splenic foci, most likely corresponding to granulomas. 3. Appendix is unremarkable 4. The prostate is enlarged. Further evaluation with PSA and the US is recommended. 5. No major changes on interval. 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, or unspecified chronic kidney disease Current Visit: Yes Status: Chronic Assessment & Plan: -Stable, continue home medications Code(s): I12.9 - HYPERTENSIVE CHRONIC KIDNEY DISEASE W STG 1-4/UNSP CHR KDNY (7) Hyponatremia with excess extracellular fluid volume Current Visit: Yes Status: Acute Assessment & Plan: - Na+ improved 130- mild Code(s): E87.1 - HYPO-OSMOLALITY AND HYPONATREMIA (8) Pleural effusion Current Visit: Yes Status: Acute Assessment & Plan: - as seen on CT - GS consulted for thoracentesis- they feel this is not needed at this time 08/31/23 - CXR reviewed Code(s): J90 - PLEURAL EFFUSION, NOT ELSEWHERE CLASSIFIED (9) Dysphagia Current Visit: Yes Status: Acute Assessment & Plan: - GS consulted for EGD - Pt reported sxs since June with 30lb weight loss Code(s): R13.10 - DYSPHAGIA, UNSPECIFIED (10) Enlarged prostate Current Visit: Yes Status: Acute Assessment & Plan: - Seen on CT abd/ pelvis - Pt unaware of findings previously - PSA - Consider US - UC - negative Code(s): N40.0 - BENIGN PROSTATIC HYPERPLASIA WITHOUT LOWER URINRY TRACT SYMP - Discharge Discharge Date: 08/31/23 Disposition: DC TO OTHER HOSP Condition: Stable Prescriptions: Continue Rosuvastatin Calcium 10 mg PO DAILY Propranolol HCl 80 mg PO DAILY Cyanocobalamin (Vitamin B-12) [Vitamin B12] 1,000 mcg PO DAILY Fluticasone/Vilanterol [Breo Ellipta 100-25 Mcg Inhalr] 1 puff PO DAILY Albuterol Sulfate [Albuterol Sulfate Hfa] 2 puff PO Q4-6HPRN PRN PRN Reason: Shortness Of Breath Aspirin EC 81 mg [Ecotrin 81 mg] 1 tab PO DAILY Follow up with: MARYURI TAVARES [ACTIVE STAFF] - 09/09/23 9:15 am (OLEMA OFFICE) BULMARO PEREZ [ACTIVE STAFF] -
--- NOTE | 2023-08-31 09:30 | CONS ---
CONSULT DATE: 08/30/2023 HISTORY: This patient was seen for my partner Dr. Liborio Perez who is rehabilitation construction specialist for our group today. I was here doing some outpatient procedures and he asked that I check on the patient. Apparently he was consulted for pleural effusion and consideration of thoracentesis as well as upper endoscopy according to the staff that called for consult. He apparently came in with some right-sided abdominal pain and history of a small pleural effusion. He has chronic obstructive pulmonary disease. He is on 3 liters nasal cannula. He has a history of hiatal hernia. He had a 30 pound weight loss in June. He had seen Dr. Edwards initially. He was admitted through the tele-hospitalist here apparently. The discomfort is a little bit more in epigastric area. PAST MEDICAL HISTORY: Heart disease, coronary stents a few years ago. Dr. Powell had seen him in the past. Chronic obstructive pulmonary disease, asthma, hypertension, hyperlipidemia. He had some lung nodules in the past. PAST SURGICAL HISTORY: He denied any prior abdominal surgery. He denied any prior upper endoscopy. He denied any prior gallbladder ultrasound work up. HOME MEDICATIONS: Propranolol, rosuvastatin, Albuterol sulfate, aspiring, cyanocobalamin, fluticasone/vilanterol, aspirin. He has been on some Lovenox here apparently. ALLERGIES: NKDA. LAB DATA AND TESTS: His white count was on 08/28/2023 was 11.2, hemoglobin 13.2. His liver function tests were okay. On 08/30/2023, his white count is 26.9. CT chest done on 08/28/2023, a few nodular densities in the right lung upper lobe radiologist questioned inflammatory or infectious process, minimal pleural effusion, fibrotic changes and some calcified hilar lymph nodes, moderate size hiatal hernia. No changes from previous CT scan. Gallbladder no pericholecystic fluid, no radio-dense calcified gallstones on CT scan. SOCIAL HISTORY: History of smoking in the past. REVIEW OF SYSTEMS: Pertinent for as noted above, chronic lung disease. He had a low grade temperature of 100.4F. Significant for chronic lung disease. The patient has not had a chest x-ray today. PHYSICAL EXAMINATION: GENERAL: A chronically ill gentleman on nasal O2. HEENT: Sclera no significant icterus on my exam today. EOM intact. Oral mucous membranes moist. NECK: No JVD. CHEST: Equal excursion, steady respirations on my visit. CVS: Regular rhythm and pulse. ABDOMEN: Very soft, a little bit of epigastric discomfort. No peritoneal signs. EXTREMITIES: No cyanosis. NEURO: Alert, moving extremities symmetrically. PSYCH: Appropriate mood and affect. SKIN: Dry. IMPRESSION AND PLAN: A 78-year-old patient seen for Dr. Liborio Perez who is rehabilitation construction specialist for our group. He had some vague right upper quadrant and epigastric pain whether related to gastritis, peptic ulcer disease. He does have what seems to be chronic hiatal hernia. Whether he has ulcer disease or he could have some biliary colic. He did not have any calcified stones on his CT scan. We can check an ultrasound for further evaluation and/or HIDA. Additionally, he had a small pleural effusion but he is not a surgical candidate for any thoracentesis based on the CT that I reviewed as well as abdominal pain. Will get opinion from interventional radiology to see what they thought. Could consider needle intervention or drainage. He did have some calcified lung nodules whether that is from granulomatous disease or whether pneumonia is unclear. He did not appear to have any free air in the abdomen on the CT scan that I saw. He had some pancakes and some Ensure today. He is not NPO so he is not a candidate, could consider upper endoscopy. He does not need nonemergent surgery at this time. Will discuss with Dr. Liborio Perez about possible upper endoscopy sometime later this week when OR time available. Otherwise, continue medical management. If he develops pneumonia or he gets worse, he may need follow up with his Prenatal Genetic Counselor, Dr. Adolfo Tavares. Otherwise in the meantime, we are waiting to decide whether Dr. Liborio Perez has time to do an upper endoscopy this admission. Will check an ultrasound tomorrow but if negative will check a HIDA scan to rule out biliary colic or other cause of his weight loss and nausea over the past few months. His blood pressure was 116/58. He does not need any emergent surgery. He is not NPO so he does warrant upper endoscopy today. We ordered the gallbladder ultrasound and if negative HIDA scan. Otherwise, he would benefit from upper endoscopy at some point this admission. He is on Merrem for his leukocytosis of unclear etiology whether from pneumonia or other etiology is unclear at this point. Again, he had a very soft benign abdominal exam at this time and does not appear to warrant emergent surgery. Blood pressure is stable. He is in need of further work up. Will consider checking a chest x-ray this morning to see if he had any progressive pneumonia. Otherwise, he would benefit from gallbladder ultrasound or HIDA and eventually Dr. Liborio Perez who is rehabilitation construction specialist for our group today has time for upper endoscopy to evaluate for hiatal hernia. Continue medical management for now. Again, we will check with Dr. Liborio Perez in the office to see when he plans to do upper endoscopy during the week.
[2023-08-31] MEDS: LEVOFLOXACIN 750MG/150ML D5W 750 MG/150 ML BAG IV STA (10:40)
--- NOTE | 2023-08-31 10:47 | XRAY ---
Indication: Pain. Two-dimensional gallbladder sonogram performed. Comparison: None Visualized gallbladder normally distended without gallstones, wall thickening, or pericholecystic fluid. Common bile duct measures 3.1 mm. No intrahepatic biliary distention or free fluid. Remaining visualized liver, pancreas, and right kidney are sonographically unremarkable. Right kidney measures 9.1 x 5.2 x 4.4 cm. Impression: Negative gallbladder sonogram.
[2023-08-31 12:21] VITALS: BP 100/56
[2023-08-31] MEDS: solu-MEDROL 40 MG, Sterile H2O 10 ml 1 ML IV SCH (12:37)
[2023-08-31 13:14] VITALS: PULSE 95; RESP 31
[2023-08-31 13:20] LABS: PSA, Free 0.54 ng/mL; Prostate Specific Ag 3.3 ng/mL (0.0-4.0)
== END 2023-08-31 13:38 | DRG 189 ==
LOC: ED 17:03 → MED SURG 21:03 → OBSVTOIN 08-29 12:29 → ICU 08-31 10:12
PROVIDERS: ADMIT Internal Medicine Nephrology; ATTEND Internal Medicine Nephrology
DX: J96.90 Respiratory failure, unspecified, unspecified whether with hypoxia or hypercapnia (principal); J18.9 Pneumonia, unspecified organism; N17.9 Acute kidney failure, unspecified; E87.1 Hypo-osmolality and hyponatremia; J90 Pleural effusion, not elsewhere classified; R10.9 Unspecified abdominal pain; E11.22 Type 2 diabetes mellitus with diabetic chronic kidney disease; N18.9 Chronic kidney disease, unspecified; I12.9 Hypertensive chronic kidney disease with stage 1 through stage 4 chronic kidney disease, or unspecified chronic kidney disease; R13.10 Dysphagia, unspecified; N40.0 Benign prostatic hyperplasia without lower urinary tract symptoms; E78.5 Hyperlipidemia, unspecified; J44.9 Chronic obstructive pulmonary disease, unspecified; K44.9 Diaphragmatic hernia without obstruction or gangrene; D72.829 Elevated white blood cell count, unspecified; Z79.899 Other long term (current) drug therapy; Z20.828 Contact with and (suspected) exposure to other viral communicable diseases
CPT/HCPCS: 0241U; 36000; 36415; 36600; 71045; 71250; 74176; 76705; 80053; 81001; 82375; 82803; 82947; 83036; 83605; 83690; 83880; 84145; 84153; 84154; 84484; 85025; 85027; 87040; 87086; 93005; 93268; 94002; 94640; 94760; 94762; 96374; 96375; 96376; 99285; J0456; J0696; J1170; J1650; J1956; J2060; J2270; J2405; J2920; J3010; Q3014; A9270-GY; G0378